=== PATIENT | female | born 1990 | race African-American/Black ===

== ENCOUNTER 2016-08-08 17:42 | Emergency (ER) | payer BC | END 2016-08-08 19:40 | disposition left against medical advice (07) | LOC: UCCORT 17:42 | DX: R21 Rash and other nonspecific skin eruption (principal); Z53.21 Procedure and treatment not carried out due to patient leaving prior to being seen by health care provider ==

== ENCOUNTER 2016-08-15 07:28 | Emergency (ER) | payer BC ==
--- NOTE | 2016-08-15 07:59 | UC ---
Respiratory Complaint HPI - History of Current Complaint Chief Complaint: UCRespiratory Stated Complaint: COUGH Time Seen by Provider: 08/15/16 07:52 Hx Obtained From: Patient Hx Last Menstrual Period: 08/04/16 ?: No Onset/Duration: Sudden Onset, Lasting Weeks - 3, Still Present, Worse Since - last few days Character: Cough: Productive Aggravating Factors: Deep Breaths Associated Signs And Symptoms: Positive: Chills, Pleuritic Chest Pain, Wheezing , Nasal Congestion, Hoarseness, Sinus Discomfort Related History: Seasonal Allergies - Risk Factors Pulmonary Embolism Risk Factors: Smoking Cardiac Risk Factors: Smoking, Family History Pseudomonas Risk Factors: Repeated Antibiotics Past 3 Months Tuberculosis Risk Factors: Smoking - Allergies/Home Medications Allergies/Adverse Reactions: Allergies Allergy/AdvReac Type Severity Reaction Status Date / Time animals Allergy Eyes Uncoded 08/15/16 07:47 Itchy/Swollen/Red/Watery thorazine Allergy See Comment Uncoded 05/27/16 12:08 Home Medications: Home Medications Acetaminophen TAB* [Tylenol TAB*] 2,000 mg PO ONCE PRN 08/15/16 [History Confirmed 08/15/16] PMH/Surg Hx/FS Hx/Imm Hx Endocrine History Of: Denies: Diabetes, Thyroid Disease Cardiovascular History Of: Denies: Cardiac Disorders, Hypertension Respiratory History Of: Reports: Asthma Denies: COPD GI/ History Of: Denies: Ulcer - Surgical History Surgical History: Yes Surgery Procedure, Year, and Place: breast reduction in October-2015 - Family History Known Family History: Positive: Cardiac Disease, Diabetes, Other - asthma - Social History 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 Lives: With Family Alcohol Use: None Substance Use Type: None Substance Use Comment - Amount & Last Used: 4 cups coffee per day Smoking Status (MU): Light Every Day Tobacco Smoker Type: Cigarettes Amount Used/How Often: 5 cig per day Have You Smoked in the Last Year: Yes Cessation Counseling: Patient Advised to Stop Review of Systems Constitutional: Fever, Chills Respiratory: Shortness Of Breath, Cough Musculoskeletal: Myalgia All Other Systems Reviewed And Are Negative: Yes Physical Exam Triage Information Reviewed: Yes Appearance: Ill-Appearing, Pain Distress - with deep breaths and coughing., Obese Vital Signs: Initial Vital Signs Temp 97.2 F 08/15/16 07:35 Pulse 94 02/25/17 07:35 Resp 20 08/15/16 07:35 BP 111/83 08/15/16 07:35 Pulse Ox 100 08/15/16 07:35 Vital Signs Reviewed: Yes Eyes: Positive: Conjunctiva Clear ENT: Positive: Pharynx normal, TMs normal Neck exam: Normal Respiratory: Positive: Wheezing - expiratory with coughing Cardiovascular Exam: Normal Abdomen Description: Negative: Nontender - tender upper abdominal muscles, Peritoneal Signs Musculoskeletal Exam: Normal Neurological Exam: Normal Psychological Exam: Normal Skin Exam: Normal UC Diagnostic Evaluation - Laboratory O2 Sat by Pulse Oximetry: 100 Respiratory Course/Dx - Differential Dx/Diagnosis Differential Diagnosis/HQI/PQRI: Asthma, Influenza, Lower Resp Infection, Sinusitis Provider Diagnoses: Asthma with acute exacerbation. Influenza A Discharge - Discharge Plan Condition: Stable Disposition: HOME Prescriptions: Oseltamivir CAP* [Tamiflu CAP*] 75 mg PO BID #10 cap predniSONE TAB* [Deltasone TAB*] 20 mg PO DAILY #18 tab Patient Education Materials: Influenza (ED), Oseltamivir (By mouth), Asthma (ED ), Prednisone (By mouth), Cigarette Smoking and Your Health (GEN) Additional Instructions: Smoking Cessation Tricks. 1. Cut down by 1 cigarette per day every 2-3 days. Write the number of smokes for that day on the calendar. 2. Identify triggers to smoking: after meals, on the phone, in the car, with coffee, on breaks at work, etc. 3. Formulate a plan with a behavior to replace the smoking. Fireballs in the car , doodle pad on the phone, flavored creamer for the coffee, go for a walk after a meal or on break at work. 4. For stress smokes do deep breathing relaxation. Breath deep in through the nose hold the breath in for a few seconds then breath out slowly through the mouth.
[2016-08-15 08:31] VITALS: BP 114/73
== END 2016-08-15 08:31 | disposition home or self-care (01) ==
LOC: UCCORT 07:28
DX: J09.X2 Influenza due to identified novel influenza A virus with other respiratory manifestations (principal); R07.81 Pleurodynia; J45.901 Unspecified asthma with (acute) exacerbation; F17.210 Nicotine dependence, cigarettes, uncomplicated; Z71.6 Tobacco abuse counseling; Z91.048 Other nonmedicinal substance allergy status; Z91.09 Other allergy status, other than to drugs and biological substances
CPT/HCPCS: 87502; 99212; G0463

== ENCOUNTER 2017-06-06 10:49 | Emergency (ER) | payer BC, OTHER ==
[2017-06-06] MEDS ORDERED: Ketorolac INJ* 60 MG/2 ML VIAL IM ONE (11:31)
--- NOTE | 2017-06-06 11:54 | UC ---
Back Pain HPI - HPI Summary HPI Summary: c/o lower back pain when waking up this am but has been going on for about a week now on and off. took tylenol without relief. 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 denies any radiation down her legs at this time. denies any injury to her back also - History of Current Complaint Chief Complaint: UCBackPain Stated Complaint: BACK PAIN Time Seen by Provider: 06/06/17 11:15 Hx Obtained From: Patient Hx Last Menstrual Period: 05/28/17 ?: No Onset/Duration: Sudden Onset Timing: Constant, Intermittent Severity Initially: Moderate Severity Currently: Moderate Character: Sharp Aggravating Factor(s): Movement, Lifting, Bending, Walking Alleviating Factor(s): Position Associated Signs And Symptoms: Positive: Negative - Allergies/Home Medications Allergies/Adverse Reactions: Allergies Allergy/AdvReac Type Severity Reaction Status Date / Time animals Allergy Eyes Uncoded 06/06/17 11:18 Itchy/Swollen/Red/Watery thorazine Allergy See Comment Uncoded 06/06/17 11:18 PMH/Surg Hx/FS Hx/Imm Hx - Surgical History Surgical History: Yes Surgery Procedure, Year, and Place: breast reduction in October-2015 - Family History Known Family History: Positive: Cardiac Disease, Diabetes, Other - asthma - Social History Alcohol Use: None Substance Use Type: None Substance Use Comment - Amount & Last Used: 4 cups coffee per day Smoking Status (MU): Light Every Day Tobacco Smoker Type: Cigarettes Amount Used/How Often: 5 cig per day Have You Smoked in the Last Year: Yes - Immunization History Most Recent Influenza Vaccination: has not had Review of Systems Constitutional: Negative Skin: Negative Eyes: Negative ENT: Negative Respiratory: Negative Cardiovascular: Negative Gastrointestinal: Negative Genitourinary: Negative Motor: Decreased ROM Neurovascular: Negative Musculoskeletal: Myalgia - lower back Neurological: Negative Psychological: Negative Is Patient Immunocompromised?: No All Other Systems Reviewed And Are Negative: Yes Physical Exam Triage Information Reviewed: Yes Appearance: Well-Appearing Vital Signs: Initial Vital Signs Temp 97.2 F 06/06/17 11:13 Pulse 89 06/06/17 11:13 Resp 18 06/06/17 11:13 BP 106/64 06/06/17 11:13 Pulse Ox 100 06/06/17 11:13 Vital Signs Reviewed: Yes ENT Exam: Normal Neck: Positive: Supple Respiratory: Positive: Chest non-tender, Lungs clear, Normal breath sounds Cardiovascular Exam: Normal Abdominal Exam: Normal Musculoskeletal: Positive: Strength Intact Neurological Exam: Normal Psychological Exam: Normal Skin Exam: Normal Back Pain Course/Dx - Course Course Of Treatment: xray of lumbar spine ordered. toradol im 60mg x 1 now given by nurse. alternate tylenol / ibuprofen every 4-6 hours for pain. f/u pcp in 1 week if symptoms not resolving - Differential Dx/Diagnosis Provider Diagnoses: muscle strain Discharge - Discharge Plan Condition: Good Disposition: HOME Prescriptions: Ibuprofen TAB* [Motrin TAB* 600 MG] 600 mg PO Q6H PRN #40 tab PRN Reason: Pain Patient Education Materials: Muscle Strain (ED) Referrals: JOSE CARLOS Gil [Primary Care Provider] - 1 Week
[2017-06-06 11:57] VITALS: BP 106/64
--- NOTE | 2017-06-06 12:13 | RAD ---
HISTORY: Low back pain, strain COMPARISONS: None VIEWS: 5 , Frontal, lateral, coned-down lateral sacral, and bilateral oblique views of the lumbar spine. FINDINGS: ALIGNMENT: The alignment is normal. VERTEBRAL BODIES: The vertebral body heights are normal. The interpedicular distances are normal. JOINTS: The facet joints are normal. INTERVERTEBRAL DISCS: The intervertebral disc heights are normal. SOFT TISSUE: Unremarkable. OTHER: The pelvis is unremarkable. The lung bases are clear. IMPRESSION: UNREMARKABLE RADIOGRAPHS OF THE LUMBAR SPINE
--- OUTSIDE RECORDS SUMMARY | 2017-06-07 11:51 | XMS REPORT | Clinical Summary ---
:1990 Author Organization [facility] Address [address] [place] [address] Phone Allergies, Adverse Reactions, Alerts Allergy Name Reaction Description Start Date Severity Status Provider THORAZINE Critical Active ANUJA KOGLER PA Conditions or Problems Problem Name Problem Onset Status Entry Provider Comment Standard Annotate Code Date Date Description OBESITY 278.00 Active TAYLOR MADISON Obesity, / [employer] unspecified ASTHMA 493.90 Active TAYLOR MADISON Asthma, / [employer] unspecified BACK PAIN 724.5 Active TAYLOR MADISON Backache, Thoracic / [employer] unspecified INSOMNIA 307.40 Active TAYLOR MADISON 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, unspecified HYPERTROPHY OF 611.1 Active TAYLOR MADISON Hypertrophy of BREAST / [employer] breast VITAMIN D 268.9 Active Kary Unspecified DEFICIENCY / Castro vitamin D deficiency Candidal 112.1 Active ANUJA Candidiasis of vaginitis / KOGLER PA vulva and vagina Hearing loss, 389.9 Active ANUJA Unspecified unspecified / KOGLER PA hearing loss Skin breakdown 709.9 Active ANUJA Unspecified / KOGLER PA disorder of skin and subcutaneous tissue Ear pain 388.70 Active Maribeth 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, / [employer]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 Tinnitus 388.30 Active Maribeth Tinnitus, [employer]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 Hx of elective V45.89 Active ANUJA Other reduction of / KOGLER PA postsurgical breast status Breast 611.71 Active ANUJA Mastodynia tenderness / VERENA AMOR Black stools 578.1 Active ANUJA Blood in stool / VERENA AMOR Epigastric 789.06 Active ANUJA Abdominal pain / VERENA AMOR pain, epigastric Hx of vitamin 268.9 Active SATINDER Unspecified D deficiency / [employer] vitamin D deficiency Prediabetes 790.29 Active SATINDER Other abnormal / [employer] glucose Medication List Medication Instructions Start Stop Generic Name NDC Status Provider Patient Date Date Instruction SYMBICORT 2 inhalation BUDESONIDE-FO 655084679 Active CAITLIN DILL 80-4.5 Twice a Day 07/16 RMOTEROL 20 MD MCG/ACT FUMARATE INHALATION AEROSOL LORATADINE 1 by mouth at LORATADINE 199096010 Active SATINDER 10 MG ORAL bedtime 07/23 10 [employer] TABLET ABILIFY 20 2 by mouth at ARIPIPRAZOLE 193991826 Active SATINDER MG ORAL bedtime 08/31 13 [employer] TABLET VITAMIN D 1 By Mouth ERGOCALCIFERO 157584930 Active SATINDER (ERGOCALCIF Every week 09/01 L 01 [employer]IC ALVINO) [address] UNIT ORAL CAPSULE PROAIR HFA 2 puffs every ALBUTEROL 813792172 Active CAITLIN DILL 108 (90 4 - 6 hours 07/16 SULFATE 22 MD Base) as needed MCG/ACT INHALATION AEROSOL SOLUTION Immunizations Vaccine Administration Date Value Standard Description Tetanus toxoid, reduced given tetanus toxoid, reduced diphtheria toxoid and diphtheria toxoid, and acellular Pertussis vaccine, acellular pertussis vaccine, absorbed (TdaP) given adsorbed Vital Signs Date Name Value Unit Range Description blood pressure, diastolic 73 mm[Hg] BP varela blood pressure, systolic 107 mm[Hg] BP sys height E&M 63 [in_us] Bdy height pulse rate E&M 87 /min Heart rate respiratory rate E&M 18 /min Resp rate temperature E&M 98.0 [degF] Body temperature weight E&M 217 [lb_av] Weight Measured Diagnostic Results Date Name Value Unit Range Description Lab Report: CBS W/AUTOMATED DIFF, COMPREHENSIVE METABOLIC PANEL, SALICYL ... - Chemistry BASOPHILS 0.04 0.0-0.1 blood glucose, random 96 mg/dL 74-106 urea nitrogen, blood 7 mg/dL 7-18 creatinine, serum 0.8 mg/dL 0.6-1.3 Estimated Glomerular Filtration >60 mL/min mL/min/1.73m2 > 60 Rate (calc) Glomerular Filtration rate >60 mL/min >60 Macanese urea nitrogen/creatinine ratio, 8.7 ratio serum sodium, serum 142 mmol/L 757-269 9576/05/08 potassium, serum 3.9 mmol/L 3.5-5.1 chloride, serum 107 mmol/L 98-107 carbon dioxide, venous blood 28 mmol/L 21-32 anion gap, serum 7 mEq/L 8-16 calcium, serum 9.0 mg/dL 8.5-10.1 protein, total, serum 8.1 g/dL 6.4-8.2 albumin, serum 3.9 g/dL 3.4-5.0 globulins, serum, total 4.2 g/dL 1.9-4.3 albumin/globulin ratio, serum 0.9 ratio aspartate aminotransferase (SGOT), 27 U/L 15-37 serum alanine aminotransferase (SGPT), 21 U/L 12-78 serum Absolute Neutrophil count 2.12 K/UL {Cells}/uL 1.8-7.0 Absolute Lymphocytes 1.91 10*3/uL 1.0-4.0 urobilinogen, urine 0.2 E.U./DL {Ehrlich_U}/dL 0.2-1.0 leukocyte (WBC) esterase, urine NEGATIVE NEGATIVE Lab Report: CBS W/AUTOMATED DIFF, COMPREHENSIVE METABOLIC PANEL, SALICYL ... - Hematology Eosinophil Absolute Count 0.21 10*3/uL 0.0-0.5 leukocyte count, blood 4.8 10*3/mm3 3.1-10.7 mean corpuscular hemoglobin concentration, 33.7 G/DL % 30.8- 34.3 RBC platelet count 412 10*3/mm3 635-488 8786/05/08 red blood cell distribution width, size 48.1 fL 3-47 density mean platelet volume 10.1 fL 8.9-12.4 neutrophils as percent of blood leukocytes 44.0 % 40.4-72.8 lymphocytes as percent of blood leukocytes 39.5 % 20.0-42.0 monocytes as percent of blood leukocytes 11.4 % 4.3-13.2 eosinophils as percent of blood leukocytes 4.3 % 0.0-6.6 basophils as percent of blood leukocytes 0.8 % 0.0-1.1 erythrocyte (RBC) count 4.55 M/UL 10*6/mm3 3.90-5.40 hemoglobin, blood 13.6 g/dL 11.6-15.8 hematocrit, blood 40.4 % 36.0-46.1 mean corpuscular volume, RBC 88.8 fL 80.9-99.0 mean corpuscular hemoglobin, RBC 29.9 pg 25.9-32.7 Lab Report: CBS W/AUTOMATED DIFF, COMPREHENSIVE METABOLIC PANEL, SALICYL ... - Toxicology acetaminophen level, serum < 2.0 ug/mL ug/mL 10.0-30.0 Lab Report: CBS W/AUTOMATED DIFF, COMPREHENSIVE METABOLIC PANEL, SALICYL ... - Urinalysis urine color YELLOW YELLOW appearance, urine CLEAR CLEAR glucose, urine, semiquantitative NEGATIVE NEGATIVE bilirubin, urine NEGATIVE NEGATIVE ketones, urine, by test strip 15 NEGATIVE specific gravity, urine >=1.030 1.010-1.030 blood in urine (hemoglobin) by dipstick TRACE NEGATIVE nitrite, urine, semiquantitative NEGATIVE NEGATIVE Lab Report: URINE MICROALBUMIN, CMP, Lipid Panel, VIT D,25-HYD, A1C, AFF ... - Chemistry chloride, serum 104 mmol/L 326-516 1022/03/13 carbon dioxide, venous blood 28 mmol/L 22-32 anion gap, serum 5 mmol/L 2-11 blood glucose, random 86 mg/dL 70-100 urea nitrogen, blood 8 mg/dL 6-24 creatinine, serum 0.90 mg/dL 0.51-0.95 urea nitrogen/creatinine ratio, 8.9 8-20 serum calcium, serum 9.8 mg/dL 8.6-10.3 protein, total, serum 7.6 g/dL 6.4-8.9 albumin, serum 4.4 g/dL 3.2-5.2 globulin, serum 3.2 2-4 albumin/globulin ratio, serum 1.4 1-3 alkaline phosphatase, serum 62 U/L 34-104 alanine aminotransferase (SGPT), 37 U/L 7-52 serum aspartate aminotransferase (SGOT), 31 U/L 13-39 serum Estimated Glomerular Filtration 75.1 (?) mL/min/1.73m2 >60 Rate (calc) triglyceride, serum, fasting 60 mg/dL cholesterol, serum 149 mg/dL HDL cholesterol, serum 46.2 mg/dL LDL cholesterol, serum 91 mg/dL hemoglobin A1C, blood, as % of 5.7 % Less than 6.0 total hemoglobin potassium, serum 4.5 mmol/L 3.5-5.0 sodium, serum 137 mmol/L 878-119 5295/03/13 microalbumin/creatinine ratio, 4.2 ug/mg <31 urine creatinine, random, urine 580.26 mg/dL Lab Report: URINE MICROALBUMIN, CMP, Lipid Panel, VIT D,25-HYD, A1C, AFF ... - Genetics/fertility eGFR if 96.6 (?) mL/min/1.73m2 >60 Lab Report: URINE MICROALBUMIN, CMP, Lipid Panel, VIT D,25-HYD, A1C, AFF ... - Urinalysis microalbumin/total urine volume 24.4 mg/L Office Visit: DIANNE/GITA Age:25: labs and shot - Urinalysis urine color yellow appearance, urine clear leukocyte esterase, urine, by dipstick negative nitrite, urine, semiquantitative negative urobilinogen, urine, semiquantitative (dipstick) negative blood in urine (hemoglobin) by dipstick negative ketones, urine, by test strip negative bilirubin, urine negative glucose, urine, semiquantitative negative pH, urine, semiquantitative 5.0 specific gravity, urine 1.030 Encounters Code Encounter Date Provider Facility CPT-91947 Ofc Vst, Est Level III [facility] 10:09:44 EDT CPT-44043 Ofc Vst, Est Level III ANUJA AMOR [facility] 10:05:32 EDT CPT-36264 Ofc Vst, Est Level III [facility] 09:36:03 EST CPT-11496 Ofc Vst, Est Level III ANUJA AMOR [facility] 09:12:18 EST CPT-60205 [facility] CPT-10277 Ofc Vst, New Level II TAYLOR ELI [facility] 14:44:11 EDT Procedures Code Procedure Name Date Entry Date Standard Description CPT-24534 Est - PE 18-39 Y 13:10:17 EDT CPT-46931 Admin one Imm 12:07:44 EDT CPT-58141 TDAP (Boostrix) 12:07:42 EDT CPT-58640 Est - PE 18-39 Y 11:23:17 EDT CPT-60703 TDAP (Boostrix) 11:39:58 EDT CPT-74173 Est - PE 18-39 Y 13:18:21 EST CPT-30000 Venipuncture 13:18:20 EST CPT-65722R Audiometric Screen 10:02:14 EST CPT-60160 Urine Dip - In House 10:02:12 EST CPT-60106 PAP (Procedure Only) 09:29:54 EST CPT-60123 Est - PE 18-39 Y 09:29:54 EST CPT-47982 Urine Dip - In House 09:29:54 EST
--- OUTSIDE RECORDS SUMMARY | 2017-06-07 11:52 | XMS REPORT ---
:1990 External Reference #:[id number] Author Organization [facility] Address [address] [address] Phone [phone] Care Team Providers Name Role Phone Susan Brenner MD Primary Care Physician Unavailable Payers Type Date Identification Numbers Payment Provider Subscriber Commercial Policy Number: [id number] Jose Guadalupe Davis Group Number: [id number] [address] PayID: [id number] [place] [address] Medig[employer] Part B Expires: 2015 [facility]ID: [id number] [facility] [address] [address] [place] [address] Supplemental Policy Effective: Policy Number: Cont: [facility] [employer] 2015 [id number] [facility] Group Number: [id number] [id number] [facility] PayID: [id number] [place] [address] Problems Date Description Provider Status Onset: 05/12/2017 Acquired brandonux yolanda Vargas MD Active Family History Date Family Member(s) Problem(s) Comments Father Asthma Mother Asthma Mother maternal grandmother-asthma Social History Type Date Description Comments Marital Status Single Lives With Family 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 Cigarette Use currently smokes 1/2 Pack Daily ETOH Use Currently consumes alcohol 3-4 times per week Smoking Light tobacco smoker (10 or fewer cigarettes/day) Recreational Drug Use Former Drug User Daily Caffeine Consumes on average 1 cup of regular coffee per day Daily Caffeine Consumes on average 2 sodas per day Daily Caffeine Consumes on average 32oz of energy drinks per day Exercise Type/Frequency Does not exercise Allergies, Adverse Reactions, Alerts Date Description Reaction Status Severity Comments 05/06/2017 NKDA active 05/12/2017 Dogs active 05/12/2017 Dust active Medications Medication Date Status Form Strength Qnty SIG Indications Ordering Provider Loratadine 00/00/00 Active Tablets 10mg 1 by mouth Unknown 00 every day as needed Symbicort Active Aerosol 80-4.5mcg/Ac 2 puff Unknown 00 t twice a day Proair HFA Active Aerosol 108(90Base) 2 puffs by Unknown 00 mcg/Act mouth every 4 hours as needed Medications Administered in Office Medication Date Status Form Strength Qnty SIG Indications Ordering Provider PPD Administered Injection Nurse Visit 6 C Vital Signs Date Vital Result Comment 05/12/2017 Height 63.50 inches 5'3.50" Weight 238.00 lb Heart Rate 87 /min BP Systolic Sitting 104 mmHg BP Diastolic Sitting 76 mmHg Respiratory Rate 20 /min Pain Level 0 O2 % BldC Oximetry 98 % BMI (Body Mass Index) 41.5 kg/m2 Results Description No Information Procedures Description No Information Plan of Care 05/12/2017 - Joey Vargas, MDM20.11 Hallux valgus (acquired), right footFollow up:Follow Up: As needed please print off patient education form
== END 2017-06-06 12:42 | disposition home or self-care (01) ==
LOC: UCCORT 10:49
DX: S39.012A Strain of muscle, fascia and tendon of lower back, initial encounter (principal); X50.9XXA Other and unspecified overexertion or strenuous movements or postures, initial encounter; Y93.F2 Activity, caregiving, lifting; Y92.9 Unspecified place or not applicable; Y99.0 Civilian activity done for income or pay; F17.210 Nicotine dependence, cigarettes, uncomplicated
CPT/HCPCS: 72110; 96372; 99212; G0463; J1885

== ENCOUNTER 2018-03-28 17:53 | Inpatient (IN) | payer OTHER ==
[2018-03-28] MEDS ORDERED: Clindamycin 600 MG IVPREMIX(* 600 MG/50 ML SDV IV ONE (18:21)
[2018-03-28] MEDS ORDERED: NS 0.9% 1000 ML* 1,000 ML IV ONE ×2 (18:22→19:38)
[2018-03-28] MEDS ORDERED: Ketorolac INJ* 30 MG/ML 1 ML VIAL IV PUSH ONE (18:22)
[2018-03-28 18:58] LABS: ABS Basophils 0.1 10^3/ul (0-0.2); ABS Eosinophils 0.1 10^3/ul (0-0.6); ABS Lymphocytes 1.6 10^3/ul (1.0-4.8); ABS Monocytes 0.7 10^3/ul (0-0.8); ABS Neutrophils 8.2 10^3/ul (1.5-7.7); ABS Nucleated RBC 0 10^3/ul; Hematocrit 37 % (35-47); Hemoglobin 12.6 g/dl (12.0-16.0); Lymphocyte % 14.8 % (25-47); Mean Corpuscular HGB Conc 34 g/dl (31-36); Mean Corpuscular Hemoglobin 30 pg (27-31); Mean Corpuscular Volume 87 fL (80-97); Mean Platelet Volume 7.9 um3 (7.4-10.4); Nucleated Red Blood Cells % 0; Platelet Count 421 10^3/ul (150-450); Red Blood Count 4.26 10^6/ul (4.00-5.40); Red Cell Distribution Width 14 % (10.5-15); White Blood Count 10.8 10^3/ul (3.5-10.8)
[2018-03-28 19:04] LABS: INR 1.04 (0.77-1.02)
[2018-03-28 19:15] LABS: EGFR Non-African American 60.6 (>60)
--- NOTE | 2018-03-28 19:38 | ED ---
Skin Complaint - HPI Summary HPI Summary: 27 year old female presents with rash for the past couple days. she's got bit by a bug on . She then developed a pimple type lesion on her right cheek on Wednesday that she tried to pop it and got no drainage. States she went to [facility] yesterday and she would not let them drain it but they did open it up with a needle and nothing came out. She states that they placed on Bactrim. She took 2 doses of Bactrim. States the swelling continues to increase. She denies any fevers but admits to chills. States she went to [facility] today and they gave her a dose of Zosyn and they wants to admit her. She states she had allergic reactions associated with the Zosyn as she became itchy so they gave her some benadryl. She states that it took to long so she signed out AMA. She states that since being seen there this morning the swelling in her face is increased. She denies any pain with eye movement. She states that she is now not able to completely open her eyes any more. She had a CT doen at [facility] which showed no abscess. She is not diabetic. She denies any history of MRSA. - History of Current Complaint Chief Complaint: EDRashSkinAbscess Time Seen by Provider: 03/28/18 18:13 Stated Complaint: RT SIDE FACIAL SWELLING Hx Last Menstrual Period: 08/04/16 Pain Intensity: 10 - Allergy/Home Medications Allergies/Adverse Reactions: Allergies Allergy/AdvReac Type Severity Reaction Status Date / Time piperacillin [From Zosyn] Allergy Itching Verified 03/28/18 18:05 tazobactam [From Zosyn] Allergy Itching Verified 03/28/18 18:05 animals Allergy Eyes Uncoded 06/06/17 11:18 Itchy/Swollen/Red/Watery thorazine Allergy See Comment Uncoded 06/06/17 11:18 PMH/Surg Hx/FS Hx/Imm Hx Endocrine/Hematology History: Denies: Hx Diabetes, Hx Thyroid Disease Cardiovascular History: Denies: Hx Hypertension Respiratory History: Reports: Hx Asthma Denies: Hx Chronic Obstructive Pulmonary Disease (COPD) GI History: Denies: Hx Ulcer - Surgical History Surgery Procedure, Year, and Place: breast reduction in October-2015 Infectious Disease History: No Infectious Disease History: Denies: Hx Clostridium Difficile, Hx Hepatitis, Hx Human Immunodeficiency Virus (HIV), Hx of Known/Suspected MRSA, Hx Shingles, Hx Tuberculosis, Hx Known/ Suspected VRE, Hx Known/Suspected VRSA, History Other Infectious Disease, Traveled Outside the [place] in Last 30 Days - Family History Known Family History: Positive: Cardiac Disease, Diabetes, Other - asthma - Social History Alcohol Use: Daily Alcohol Amount: 1 beer a night Substance Use Type: Reports: Marijuana, Other Substance Use Comment - Amount & Last Used: 4 cups coffee per day Smoking Status (MU): Light Every Day Tobacco Smoker Type: Cigarettes Amount Used/How Often: 5 cig per day Have You Smoked in the Last Year: Yes Review of Systems Negative: Fever Negative: Chest Pain Negative: Shortness Of Breath Positive: Rash All Other Systems Reviewed And Are Negative: Yes Physical Exam Triage Information Reviewed: Yes Vital Signs On Initial Exam: Initial Vitals Temp Pulse Resp BP Pulse Ox 97.1 F 74 16 127/98 100 03/28/18 17:57 03/28/18 17:57 03/28/18 17:57 03/28/18 17:57 03/28/18 17:57 Vital Signs Reviewed: Yes Appearance: Positive: Well-Appearing Skin: Positive: Warm, Dry, Other - edema below right eye with erythema, induration felt in center of right cheek Head/Face: Positive: Normal Head/Face Inspection Eyes: Positive: Normal, Conjunctiva Clear ENT: Positive: Pharynx normal Respiratory/Lung Sounds: Positive: Clear to Auscultation, Breath Sounds Present Cardiovascular: Positive: Normal, RRR Musculoskeletal: Positive: Normal Neurological: Positive: Normal Psychiatric: Positive: Normal Diagnostics - Vital Signs Vital Signs Temp Pulse Resp BP Pulse Ox 03/28/18 19:00 87 100 03/28/18 18:57 78 92/66 99 03/28/18 18:28 77 99/52 99 03/28/18 18:27 80 97 03/28/18 17:57 97.1 F 74 16 127/98 100 - Laboratory Lab Results: Lab Results 03/28/18 03/28/18 03/28/18 Range/Units 18:48 18:48 18:48 WBC 10.8 (3.5-10.8) 10^3/ul RBC 4.26 (4.00-5.40) 10^6/ul Hgb 12.6 (12.0-16.0) g/dl Hct 37 (35-47) % MCV 87 (80-97) fL MCH 30 (27-31) pg MCHC 34 (31-36) g/dl RDW 14 (10.5-15) % Plt Count 421 (150-450) 10^3/ul MPV 7.9 (7.4-10.4) um3 Neut % (Auto) 76.1 (38-83) % Lymph % (Auto) 14.8 L (25-47) % [place] % (Auto) 6.9 (0-7) % Eos % (Auto) 1.0 (0-6) % Baso % (Auto) 1.2 (0-2) % Absolute Neuts (auto) 8.2 H (1.5-7.7) 10^3/ul Absolute Lymphs (auto) 1.6 (1.0-4.8) 10^3/ul Absolute Monos (auto) 0.7 (0-0.8) 10^3/ul Absolute Eos (auto) 0.1 (0-0.6) 10^3/ul Absolute Basos (auto) 0.1 (0-0.2) 10^3/ul Absolute Nucleated RBC 0 10^3/ul Nucleated RBC % 0 INR (Anticoag Therapy) 1.04 H (0.77-1.02) Sodium 136 (135-145) mmol/L Potassium 3.6 (3.5-5.0) mmol/L Chloride 104 (101-111) mmol/L Carbon Dioxide 28 (22-32) mmol/L Anion Gap 4 (2-11) mmol/L BUN 11 (6-24) mg/dL Creatinine 1.07 H (0.51-0.95) mg/dL Est GFR ( Amer) 73.4 (>60) Est GFR (Non-Af Amer) 60.6 (>60) BUN/Creatinine Ratio 10.3 (8-20) Glucose 102 H (70-100) mg/dL Lactic Acid (0.5-2.0) mmol/L Calcium 9.4 (8.6-10.3) mg/dL Total Bilirubin 0.40 (0.2-1.0) mg/dL AST 16 (13-39) U/L ALT 14 (7-52) U/L Alkaline Phosphatase 62 (34-104) U/L Total Protein 7.6 (6.4-8.9) g/dL Albumin 4.3 (3.2-5.2) g/dL Globulin 3.3 (2-4) g/dL Albumin/Globulin Ratio 1.3 (1-3) 03/28/18 Range/Units 18:48 WBC (3.5-10.8) 10^3/ul RBC (4.00-5.40) 10^6/ul Hgb (12.0-16.0) g/dl Hct (35-47) % MCV (80-97) fL MCH (27-31) pg MCHC (31-36) g/dl RDW (10.5-15) % Plt Count (150-450) 10^3/ul MPV (7.4-10.4) um3 Neut % (Auto) (38-83) % Lymph % (Auto) (25-47) % [place] % (Auto) (0-7) % Eos % (Auto) (0-6) % Baso % (Auto) (0-2) % Absolute Neuts (auto) (1.5-7.7) 10^3/ul Absolute Lymphs (auto) (1.0-4.8) 10^3/ul Absolute Monos (auto) (0-0.8) 10^3/ul Absolute Eos (auto) (0-0.6) 10^3/ul Absolute Basos (auto) (0-0.2) 10^3/ul Absolute Nucleated RBC 10^3/ul Nucleated RBC % INR (Anticoag Therapy) (0.77-1.02) Sodium (135-145) mmol/L Potassium (3.5-5.0) mmol/L Chloride (101-111) mmol/L Carbon Dioxide (22-32) mmol/L Anion Gap (2-11) mmol/L BUN (6-24) mg/dL Creatinine (0.51-0.95) mg/dL Est GFR ( Amer) (>60) Est GFR (Non-Af Amer) (>60) BUN/Creatinine Ratio (8-20) Glucose (70-100) mg/dL Lactic Acid 1.1 (0.5-2.0) mmol/L Calcium (8.6-10.3) mg/dL Total Bilirubin (0.2-1.0) mg/dL AST (13-39) U/L ALT (7-52) U/L Alkaline Phosphatase (34-104) U/L Total Protein (6.4-8.9) g/dL Albumin (3.2-5.2) g/dL Globulin (2-4) g/dL Albumin/Globulin Ratio (1-3) Result Diagrams: 03/28/18 18:48 03/28/18 18:48 Lab Statement: Any lab studies that have been ordered have been reviewed, and results considered in the medical decision making process. Re-Evaluation - Re-Evaluation First Eval Re-Evaluation Time: 20:25 Comment: admits to itchying again. pain increased again Course/Dx - Course Course Of Treatment: 27 year old female presents with rash for the past couple days. she's got bit by a bug on . She then developed a pimple type lesion on her right cheek on Wednesday that she tried to pop it and got no drainage. States she went to [facility] yesterday and she would not let them drain it but they did open it up with a needle and nothing came out. She states that they placed on Bactrim. She took 2 doses of Bactrim. States the swelling continues to increase. She denies any fevers but admits to chills. States she went to [facility] today and they gave her a dose of Zosyn and they wants to admit her. She states she had allergic reactions associated with the Zosyn as she became itchy so they gave her some benadryl. She states that it took to long so she signed out AMA. She states that since being seen there this morning the swelling in her face is increased. She denies any pain with eye movement. She states that she is now not able to completely open her eyes any more. She had a CT doen at [facility] which showed no abscess. She is not diabetic. She denies any history of MRSA. on exam has edema and erythema of right cheek and right perioribral region. area of induraction felt right cheek. CT [facility] report read as no abscess just soft tissue swelling. gave dose of clindamycin. discussed case with dr tamez who agrees to admit and recommends vancomycin be added. - Differential Diagnoses - Skin Complaint Differential Diagnoses: Abscess, Cellulitis, Contact Dermatitis - Diagnoses Provider Diagnoses: Periorbital cellulitis Discharge - Sign-Out/Discharge Documenting (check all that apply): Patient Departure - Discharge Plan Condition: Stable Disposition: ADMITTED TO [facility] Referrals: No Primary Care Phys,NOPCP [Primary Care Provider] - - Billing Disposition and Condition Condition: STABLE Disposition: Admitted to [facility]
[2018-03-28] MEDS ORDERED: diPHENhydraMINE PO* 25 MG PO ONE (20:19)
[2018-03-28] MEDS ORDERED: Morphine INJ* 4 MG/ML 1 ML SYRINGE (NEW SYRINGE VERSION) IV ONE (20:19)
[2018-03-28] MEDS ORDERED: Vancomycin 1500 MG IV - x ONCE IVPB ONE ×2 (22:00)
[2018-03-28] MEDS ORDERED: Vancomycin(*) 1,000 MG VIAL IVPB SCH (22:00)
[2018-03-28] MEDS ORDERED: Acetaminophen TAB* 325 MG PO PRN (22:16)
[2018-03-28] MEDS ORDERED: Morphine INJ* 4 MG/ML 1 ML SYRINGE (NEW SYRINGE VERSION) IV PRN (22:16)
[2018-03-28] MEDS ORDERED: Al Hydrox/Mg Hydrox/Simet LIQ* 30 ML UDC PO PRN (22:16)
[2018-03-28] MEDS ORDERED: Albuterol HFA INHALER* 8 gm MDI INH PRN (22:32)
[2018-03-28] MEDS ORDERED: Vancomycin per Pharmacy* NOTE FOLLOW UP SCH (23:00)
--- NOTE | 2018-03-29 00:18 | HP ---
CC: [facility] in [place]; Dr. Meade.* HISTORY AND PHYSICAL: DATE OF ADMISSION: 03/28/18 PRIMARY CARE PROVIDER: [facility] in [place]. ATTENDING PHYSICIAN: Dr. Monsivais * (dictated by Simran Marie NP) CHIEF COMPLAINT: Right periorbital cellulitis. HISTORY OF PRESENT ILLNESS: Ms. Davis is a 27-year-old female patient who reports she was bit by a bug on on her right cheek. She then developed a pimple type lesion on her right cheek which she manipulated on Wednesday but, there was no drainage. She went to [facility] Wednesday and provider attempted to drain pimple again, but there was no drainage. She states she was then placed on Bactrim and discharged home. She took 2 doses of Bactrim at home. Reports swelling continued, therefore, she presented to [place] ER again today. While at [place], they gave a dose of Zosyn, obtained a CT, and they had planned to admit her. She states she had allergic reaction to Zosyn as she became itchy so they gave her Benadryl. She states that it too long for them to admit her in [place] therefore she left AMA. She states since being seen this morning in [place], the swelling in her face has increased. She denies fevers, but reports chills. She denies pain with eye movement. Denies visual changes. Denies headache, dizziness. Denies neck pain. She had a CT at [place] which showed no abscess. She presented to the ED this afternoon and we were asked to consult for admission. While in the ED, her vital signs had remained stable. She has received Clindamycin, vancomycin, and normal saline in addition to pain medication which included morphine and Toradol. She also received Benadryl 25 mg p.o. The patient was also pancultured and labs were obtained. PAST MEDICAL HISTORY: 1. Asthma. The patient has never been admitted to the hospital for asthma exacerbation. 2. Borderline diabetes. PAST SURGICAL HISTORY: Breast reduction in October 2015. MEDICATIONS: Home Medications: 1. Ventolin 2 inhalations q.4 to 6 hours p.r.n. shortness of breath. 2. Symbicort 1 inhalation b.i.d. 3. Loratadine daily. ALLERGIES: ZOSYN causes itching. THORAZINE causes seizures. SOCIAL HISTORY: The patient smokes half a pack a day for approximately the last 5 years years. EtOH use approximately 1 beer nightly. Drug use; the patient reports daily marijuana. The patient lives with her fiance and works at [employer]. The patient has been independent with ADLs and does not need any assistive devices. The patient's surrogate decision maker is her fiance, Pearl Hahn, phone number is [phone]. REVIEW OF SYSTEMS: A 14-point review of systems was performed. All pertinent positive and negative findings are in the HPI. All other systems are negative. PHYSICAL EXAMINATION GENERAL: Ms. Davis is a well-developed, well-nourished slightly obese young -Italian woman sitting in bed, in no acute distress. VITAL SIGNS: BP 115/61, O2 saturations 100% on room air, pulse 87, temp 97.1. HEENT: Pupils are equal, round, and reactive to light. Extraocular movements are intact. Sclerae normal. The patient has periorbital cellulitis on the right extending from the lower eyelid to mid cheek. Oral mucosa is moist without lesion. NECK: Full range of motion. No lymphadenopathy or tenderness. RESPIRATORY: Lungs are clear to auscultation. No rhonchi, wheezes, or rales. CARDIOVASCULAR: Regular, rate, and rhythm. S1 and S2 present. No murmurs, rubs, or gallops. ABDOMEN: Soft and nontender to palpation. Bowel sounds are normoactive throughout. No bruises appreciated. EXTREMITIES: Skin warm. No edema. No clubbing or cyanosis. Pedal pulses positive bilaterally. MUSCULOSKELETAL: Full range of motion. NEUROLOGIC: Awake, alert, and oriented x4. Moves all extremities. SKIN: Grossly intact without lesions. DIAGNOSTIC STUDIES/LABORATORY DATA: WBC is 10.8, RBC is 4.26, hemoglobin is 12.6, hematocrit 37, platelets 421, INR 1.04. Sodium is 136, potassium is 3.6, chloride is 104, BUN 11, creatinine of 1.07, glucose 102, lactic 1.1, AST 16, ALT 14, alk phos 62, C-reactive protein is 26.50. ASSESSMENT AND PLAN: Ms. Davis is a 27-year-old female with the past medical history of asthma, smoking and borderline diabetes who presented to the ED today with complaint of right periorbital cellulitis. The patient will be admitted for OBV. 1. Right periorbital cellulitis. We will continue clindamycin and vanco as given in the ED. MRSA swab sent from [facility]. Labs ordered for tomorrow morning. ID consult requested. 2. Asthma. Assessment: The patient is having no issues with breathing. We will order inhalers as she takes at home. 3. Smoking. Offered nicotine patch or inhalers. The patient declined. Discussed the importance of quitting. 4. Code status. The patient is a full code. 6. DVT prophylaxis. Based on DVT risk assessment, the patient is low risk. Therefore I will order regular ambulation. TIME SPENT: Approximately 60 minutes were spent on this admission, greater than half the time was spent with the patient's caregiver obtaining my history, performing the physical exam, and reviewing plan of care. This case has been reviewed with my attending, Dr. Monsivais, who was in agreement with my plan of care. SIMRAN MARIE, BLAKE [id number]/CPS #: [id number] JACQUELINE
[2018-03-29] MEDS: Ibuprofen TAB* 600 MG PO PRN ×3 (00:21→17:00)
[2018-03-29] MEDS: oxyCODONE/Acetamin 5/325 MG* TAB PO PRN ×5 (00:22→22:23)
[2018-03-29 00:59] LABS: Urine Appearance Cloudy; Urine Blood Negative (Negative); Urine Color Yellow; Urine Ketones Negative (Negative); Urine Protein 1+(30 mg/dL) (Negative); Urine Red Blood Cell Trace(0-2/hpf) (Absent); Urine Specific Gravity 1.027 (1.010-1.030); Urine Urobilinogen Negative (Negative); Urine White Blood Cell Trace(0-5/hpf) (Absent)
[2018-03-29] MEDS: Clindamycin 600 MG IVPREMIX(* 600 MG/50 ML SDV IV SCH ×4 (04:04→22:22)
[2018-03-29 05:48] LABS: ABS Basophils 0.1 10^3/ul (0-0.2); ABS Eosinophils 0.3 10^3/ul (0-0.6); ABS Lymphocytes 2.4 10^3/ul (1.0-4.8); ABS Neutrophils 5.6 10^3/ul (1.5-7.7); ABS Nucleated RBC 0 10^3/ul; Eosinophil % 2.8 % (0-6); Hematocrit 35 % (35-47); Hemoglobin 11.9 g/dl (12.0-16.0); Lymphocyte % 25.8 % (25-47); Mean Corpuscular HGB Conc 34 g/dl (31-36); Mean Corpuscular Hemoglobin 30 pg (27-31); Mean Corpuscular Volume 88 fL (80-97); Mean Platelet Volume 8.6 um3 (7.4-10.4); Nucleated Red Blood Cells % 0.1; Platelet Count 356 10^3/ul (150-450); Red Blood Count 4.03 10^6/ul (4.00-5.40); Red Cell Distribution Width 14 % (10.5-15); White Blood Count 9.3 10^3/ul (3.5-10.8)
[2018-03-29] MEDS: Vancomycin(*) 1,250 MG in NS 0.9% 250 ML* 250 ML IVPB SCH ×3 (06:01→23:12)
[2018-03-29 06:17] LABS: EGFR Non-African American 88.6 (>60)
[2018-03-29] MEDS: Albuterol 2.5 MG/3 ML NEB.SOL* (0.083%) INH PRN (07:28)
[2018-03-29] MEDS: Mometasone/Formoter 100/5 MDI INH SCH ×2 (07:33→20:21)
[2018-03-29] MEDS: Cetirizine* 10 MG TAB PO SCH (09:19)
--- NOTE | 2018-03-29 09:54 | PN ---
Subjective Date of Service: 03/29/18 Interval History: Patient seen and examined. States she is in a lot of pain, states she feels her vision in the right eye is blurry and facial edema is raising her lower lid, obstructing her vision. Had the "sweats" yesterday, but denies fever or chills at present, no n/v. Does have right upper tooth pain and right frontal headache. Objective Active Medications: Acetaminophen (Tylenol Tab*) 650 mg PO Q4H PRN PRN Reason: FEVER/PAIN Last Admin: 03/29/18 09:19 Dose: 650 mg Al Hydrox/Mg Hydrox/Simethicone (Maalox Plus*) 30 ml PO Q6H PRN PRN Reason: INDIGESTION Albuterol (Ventolin 2.5 Mg/3 Ml Neb.Lily*) 2.5 mg INH [id number] AWAKE PRN PRN Reason: sob/wheezing Last Admin: 03/29/18 07:28 Dose: 2.5 mg Albuterol (Ventolin Hfa Inhaler*) 2 puff INH Q4H PRN PRN Reason: WHEEZING Cetirizine HCl (Zyrtec*) 10 mg PO DAILY [facility] Last Admin: 03/29/18 09:19 Dose: 10 mg Clindamycin HCl/Dextrose (Cleocin 600 Mg Ivpremix(*) Sdv) 600 mg in 50 mls @ 100 mls/hr IV Q8H [facility] Last Admin: 03/29/18 04:04 Dose: 100 mls/hr Vancomycin HCl 1,250 mg/ (Sodium Chloride) 250 mls @ 166.667 mls/hr IVPB Q8H [facility] Last Admin: 03/29/18 06:01 Dose: 166.667 mls/hr Ibuprofen (Motrin Tab*) 600 mg PO Q6H PRN PRN Reason: PAIN Last Admin: 03/29/18 06:42 Dose: 600 mg Mometasone Furoate/Formoterol Fumar (Dulera 100/5 Mdi*) 2 puff INH BID [facility] Last Admin: 03/29/18 07:33 Dose: 2 puff Morphine Sulfate (Morphine Inj (Syringe)*) 2 mg IV Q4H PRN PRN Reason: PAIN - MILD Ondansetron HCl (Zofran Inj*) 4 mg IV Q4H PRN PRN Reason: NAUSEA/VOMITING Oxycodone/Acetaminophen (Percocet 5/325 Tab*) 1 tab PO Q4H PRN PRN Reason: Pain Last Admin: 03/29/18 06:41 Dose: 1 tab Pharmacy Consult (Vancomycin Per Pharmacy*) 1 note FOLLOW UP .VANC PER PHARMACY [facility] Pharmacy Profile Note (Vancomycin Trough Check) 1 note FOLLOW UP 0530 ONE Stop: 03/30/18 05:31 Vital Signs - 8 hr 03/29/18 03/29/18 03/29/18 03:47 03:48 06:41 Temperature 97.9 F Pulse Rate 61 Respiratory 18 16 17 Rate Blood Pressure 101/58 (mmHg) O2 Sat by Pulse 98 Oximetry 03/29/18 07:30 Temperature Pulse Rate 66 Respiratory Rate Blood Pressure (mmHg) O2 Sat by Pulse 100 Oximetry Oxygen Devices in Use Now: None Appearance: Alert, well appearing, NAD Eyes: No Scleral Icterus, - - significant periorbital edema on the right Ears/Nose/Mouth/Throat: NL Teeth, Lips, Gums, Mucous Membranes Moist Neck: NL Appearance and Movements; NL JVP, Trachea Midline Respiratory: Symmetrical Chest Expansion and Respiratory Effort, Clear to Auscultation Cardiovascular: NL Sounds; No Murmurs; No JVD, RRR Abdominal: NL Sounds; No Tenderness; No Distention Extremities: No Edema, No Clubbing, Cyanosis Skin: - - right cheek dry scabbed wound, approx 1/2cm in diameter with white crusting at the border, no exudate noted, hard, erythematous, tender, no fluctuance Neurological: Alert and Oriented x 3, NL Sensation Nutrition: Taking PO's Result Diagrams: 03/29/18 04:59 03/29/18 04:59 Additional Lab and Data: Lab Results 03/28/18 03/28/18 03/28/18 Range/Units 18:48 18:48 18:48 WBC 10.8 (3.5-10.8) 10^3/ul RBC 4.26 (4.00-5.40) 10^6/ul Hgb 12.6 (12.0-16.0) g/dl Hct 37 (35-47) % MCV 87 (80-97) fL MCH 30 (27-31) pg MCHC 34 (31-36) g/dl RDW 14 (10.5-15) % Plt Count 421 (150-450) 10^3/ul MPV 7.9 (7.4-10.4) um3 Neut % (Auto) 76.1 (38-83) % Lymph % (Auto) 14.8 L (25-47) % [place] % (Auto) 6.9 (0-7) % Eos % (Auto) 1.0 (0-6) % Baso % (Auto) 1.2 (0-2) % Absolute Neuts (auto) 8.2 H (1.5-7.7) 10^3/ul Absolute Lymphs (auto) 1.6 (1.0-4.8) 10^3/ul Absolute Monos (auto) 0.7 (0-0.8) 10^3/ul Absolute Eos (auto) 0.1 (0-0.6) 10^3/ul Absolute Basos (auto) 0.1 (0-0.2) 10^3/ul Absolute Nucleated RBC 0 10^3/ul Nucleated RBC % 0 INR (Anticoag Therapy) 1.04 H (0.77-1.02) Sodium 136 (135-145) mmol/L Potassium 3.6 (3.5-5.0) mmol/L Chloride 104 (101-111) mmol/L Carbon Dioxide 28 (22-32) mmol/L Anion Gap 4 (2-11) mmol/L BUN 11 (6-24) mg/dL Creatinine 1.07 H (0.51-0.95) mg/dL Est GFR ( Amer) 73.4 (>60) Est GFR (Non-Af Amer) 60.6 (>60) BUN/Creatinine Ratio 10.3 (8-20) Glucose 102 H (70-100) mg/dL Lactic Acid (0.5-2.0) mmol/L Calcium 9.4 (8.6-10.3) mg/dL Total Bilirubin 0.40 (0.2-1.0) mg/dL AST 16 (13-39) U/L ALT 14 (7-52) U/L Alkaline Phosphatase 62 (34-104) U/L Total Protein 7.6 (6.4-8.9) g/dL Albumin 4.3 (3.2-5.2) g/dL Globulin 3.3 (2-4) g/dL Albumin/Globulin Ratio 1.3 (1-3) 03/28/18 Range/Units 18:48 WBC (3.5-10.8) 10^3/ul RBC (4.00-5.40) 10^6/ul Hgb (12.0-16.0) g/dl Hct (35-47) % MCV (80-97) fL MCH (27-31) pg MCHC (31-36) g/dl RDW (10.5-15) % Plt Count (150-450) 10^3/ul MPV (7.4-10.4) um3 Neut % (Auto) (38-83) % Lymph % (Auto) (25-47) % [place] % (Auto) (0-7) % Eos % (Auto) (0-6) % Baso % (Auto) (0-2) % Absolute Neuts (auto) (1.5-7.7) 10^3/ul Absolute Lymphs (auto) (1.0-4.8) 10^3/ul Absolute Monos (auto) (0-0.8) 10^3/ul Absolute Eos (auto) (0-0.6) 10^3/ul Absolute Basos (auto) (0-0.2) 10^3/ul Absolute Nucleated RBC 10^3/ul Nucleated RBC % INR (Anticoag Therapy) (0.77-1.02) Sodium (135-145) mmol/L Potassium (3.5-5.0) mmol/L Chloride (101-111) mmol/L Carbon Dioxide (22-32) mmol/L Anion Gap (2-11) mmol/L BUN (6-24) mg/dL Creatinine (0.51-0.95) mg/dL Est GFR ( Amer) (>60) Est GFR (Non-Af Amer) (>60) BUN/Creatinine Ratio (8-20) Glucose (70-100) mg/dL Lactic Acid 1.1 (0.5-2.0) mmol/L Calcium (8.6-10.3) mg/dL Total Bilirubin (0.2-1.0) mg/dL AST (13-39) U/L ALT (7-52) U/L Alkaline Phosphatase (34-104) U/L Total Protein (6.4-8.9) g/dL Albumin (3.2-5.2) g/dL Globulin (2-4) g/dL Albumin/Globulin Ratio (1-3) Microbiology and Other Data: Microbiology 03/28/18 21:00 Nasal Screen MRSA (PCR) - Final Nasal Mrsa Detected Assess/Plan/Problems-Billing Assessment: This is a 27 year old female that failed outpatient treatment of a right cheek wound (possible insect bite) and reaction to Zosyn, that now presents with increasing periorbital cellulitis. - Patient Problems (1) Periorbital cellulitis of right eye Code(s): L03.213 - PERIORBITAL CELLULITIS SNOMED Code(s): 928016818 Comment: - Failed Bactrim, did have positive MRSA swab of the [facility] - Rash and SOB after having Zosyn in ED at [place] - Continue vanco and clindamycin, follow troughs - ID Consulted - Concern for increasing symptoms, now with visual disturbance, jaw and eye pain - Monitor WBCs and temps - Maxillofacial CT ordered to evaluate for abscess and surrounding structures - If abscess is noted, will consult plastic surgery, as patient prone to keloid formation - Pain control (2) Diabetes Code(s): E11.9 - TYPE 2 DIABETES MELLITUS WITHOUT COMPLICATIONS SNOMED Code(s) : 42275237 Comment: - "borderline" per patient - Will obtain A1c (3) Asthma Code(s): J45.909 - UNSPECIFIED ASTHMA, UNCOMPLICATED SNOMED Code(s): 074491508 Comment: - Not in exacerbation - Albuterol PRN (4) DVT prophylaxis Code(s): BQV5430 - SNOMED Code(s): 986533163 Comment: - Low risk, ambulate ad betsy Status and Disposition: Inpatient.
--- NOTE | 2018-03-29 10:48 | RAD ---
HISTORY: periorbital cellulitis r/o abscess right cheek COMPARISONS: None TECHNIQUE: Multiple contiguous axial CT scans were obtained of the face without intravenous contrast, with coronal and sagittal multiplanar reformations. FINDINGS: The study is limited by the lack of intravenous contrast. This limits evaluation of the solid organs and vasculature. BONES: There is no displaced fracture or dislocation. The orbital rim is intact. The zygomatic arch is intact. The pterygoid plates are intact. ORBITS: The globes are round. The optic nerves are symmetric. The extraocular musculature is normal. There is preorbital soft tissue swelling of the right, along the inferior orbit extending into the premaxillary soft tissue. There is no post septal or intraconal inflammatory change. There is no retrobulbar hematoma. PARANASAL SINUSES: The paranasal sinuses are clear. BRAIN AND SOFT TISSUE: Unremarkable. OTHER: None. IMPRESSION: PREMAXILLARY AND PREORBITAL SOFT TISSUE SWELLING ON THE RIGHT WITHOUT POST SEPTAL OR INTRACONAL EXTENSION. THERE IS NO DEFINITE LOCULATED FLUID COLLECTION TO SUGGEST ABSCESS, THOUGH EVALUATION IS LIMITED BY LACK OF INTRAVENOUS CONTRAST.
[2018-03-29] MEDS: Ondansetron INJ* 2 MG/ML VIAL IV PRN ×2 (12:07→18:47)
[2018-03-29] MEDS ORDERED: Mouth Piece, Nicotine* 1 EACH CARTRIDGE INH PRN (12:15)
[2018-03-29] MEDS ORDERED: Nicotine Inhaler* 10 MG AMP INH PRN (12:15)
[2018-03-29] MEDS ORDERED: Nicotine GUM* 2 MG PO PRN (12:15)
[2018-03-29] MEDS ORDERED: NS 0.9% 1000 ML* 1,000 ML IV ONE (12:45)
--- NOTE | 2018-03-29 21:21 | CONS ---
CONSULTATION REPORT: DATE OF CONSULT: 03/29/18 REQUESTING PROVIDER: Kaylah Acevedo NP CONSULTING SERVICE: Infectious Disease. REASON FOR CONSULT: Right face infection. IMPRESSION: 1. Right facial cellulitis, possible phlegmon. No evidence of an abscess currently with a small pustule. She has a history of being found to have MRSA in her nares. This could be staphylococcal, could be anaerobic. There has not been a preceeding dental or sinus issue to suggest an association there. She has some orbital edema, but no change in vision. CT scan today did show an abscess. 2. Obesity. 3. Allergic reaction to Zosyn while at [facility]. RECOMMENDATIONS: Agree with vancomycin and clindamycin. We will follow her face exam. It is possible that this may liquify over the next couple days and eventually need debridement, which we could recheck with an ultrasound in a day or two if she develops more fluctuance. At this point, I would continue her current antibiotics and add warm compresses along with Tylenol and ibuprofen. If she does have worsening, then we would reconsider surgical consultation. HISTORY OF PRESENT ILLNESS: This is a 27-year-old woman, who had a small pimple on her right cheek, which she was picking at, could not get any drainage , but then had some pain and swelling, so she went to [facility]. She was discharged on Bactrim, which she took, but had continued swelling of her right cheek, so went back to the ER at [place] and they gave her some Zosyn and got itchy when they gave her Zosyn, felt she was not getting adequate treatment, so she left there and came here after she developed worsening swelling to the point that her right eye swelled shut. She has not had fevers or chills. There is pain in the right cheek. Her white count here was 10. Her C-reactive protein 26. She was started on vancomycin and clindamycin, which she has tolerated well, that was started last night. Swelling is about the same today. She had a CT of her right face that did not show any abscess. There is premaxillary and periorbital soft tissue swelling. She has not had infection requiring hospitalization in the past. There is no puncture, wound, abrasion, bite to that area preceding the illness. PAST MEDICAL HISTORY: 1. Obesity. 2. Asthma. 3. Prediabetes. ALLERGIES: ZOSYN caused itching, THORAZINE caused seizure. MEDICATIONS: 1. Tylenol. 2. Albuterol. 3. Cetirizine. 4. Clindamycin 600 mg IV every 8 hours. 5. Ibuprofen as needed. 6. Morphine as needed. 7. Nicotine gum. 8. Vancomycin 1250 mg IV every 8 hours. SOCIAL HISTORY: She lives in [place] with her partner. She works at [employer] in [place]. She denies injection drug use. FAMILY HISTORY: No recurrent infections. REVIEW OF SYSTEMS: All negative except as noted above in the history of present illness. PHYSICAL EXAM: Vital Signs: Temperature is 36, heart rate 70, respiratory rate 16, blood pressure 92/46, oxygen saturation 98% on room air. In general, she is awake, not in distress. Neurologic: She is oriented x3. Follows all commands. HEENT: There is no conjunctival injection. The right upper and lower eyelids are swollen shut. There is some tenderness with opening them. There is no fluctuance. There is a 2 mm pustule over the right zygomatic arch with surrounding induration. There is no fluctuance or erythema. There is edema and tenderness without crepitus. Neck is supple without mass. Heart is regular rate and rhythm without murmurs, rubs, or gallops. Abdomen: Soft, nontender, nondistended. There are bowel sounds present. Skin: There is no rash or splinter hemorrhage. Musculoskeletal: There is no spine tenderness to palpation. Lymph Nodes: There is right cervical adenopathy, which is tender and mobile. LABORATORY DATA: White blood cell count 10, hemoglobin 12, platelets 421. Creatinine is 0.7. Please see impressions and recommendations as outlined above , which I have discussed with Kaylah Acevedo NP. Thanks for asking me to see Ms. Davis in consultation. [id number]/CPS #: [id number] JACQUELINE
[2018-03-29] MEDS ORDERED: diPHENhydraMINE PO* 25 MG PO ONE (23:00)
[2018-03-30] MEDS: Clindamycin 600 MG IVPREMIX(* 600 MG/50 ML SDV IV SCH ×3 (05:10→20:02)
[2018-03-30] MEDS ORDERED: Vancomycin Trough Check NOTE FOLLOW UP ONE (05:30)
[2018-03-30 06:17] LABS: Vancomycin Trough 17.9 mcg/mL
[2018-03-30] MEDS: oxyCODONE/Acetamin 5/325 MG* TAB PO PRN ×3 (06:23→18:38)
[2018-03-30] MEDS: Vancomycin(*) 1,250 MG in NS 0.9% 250 ML* 250 ML IVPB SCH (06:23)
[2018-03-30] MEDS: Albuterol 2.5 MG/3 ML NEB.SOL* (0.083%) INH PRN (06:44)
[2018-03-30] MEDS: Mometasone/Formoter 100/5 MDI INH SCH ×3 (06:45→20:38)
[2018-03-30] MEDS: NS 0.9% 1000 ML* 1,000 ML IV SCH (08:52)
[2018-03-30] MEDS: diPHENhydraMINE PO* 50 MG PO PRN ×2 (09:45→18:37)
[2018-03-30] MEDS: Cetirizine* 10 MG TAB PO SCH (09:45)
[2018-03-30] MEDS ORDERED: Al Hydrox/Mg Hydrox/Simet LIQ* 30 ML UDC PO PRN (11:40)
[2018-03-30] MEDS: Polyethylene Glycol 3350* 17 GM PACKET PO SCH (12:01)
--- NOTE | 2018-03-30 15:14 | PN ---
Subjective Date of Service: 03/30/18 Interval History: Patient seen and examined. Appears very anxious but states she feels the swelling is better and her vision is no longer obstructed. Denies fevers or chills. States she still has intermittent right frontal headache. Objective Active Medications: Acetaminophen (Tylenol Tab*) 650 mg PO Q4H PRN PRN Reason: FEVER/PAIN Last Admin: 03/29/18 09:19 Dose: 650 mg Al Hydrox/Mg Hydrox/Simethicone (Maalox Plus*) 30 ml PO Q6H PRN PRN Reason: CONSTIPATION Albuterol (Ventolin 2.5 Mg/3 Ml Neb.Lily*) 2.5 mg INH [id number] AWAKE PRN PRN Reason: sob/wheezing Last Admin: 03/30/18 06:44 Dose: 2.5 mg Albuterol (Ventolin Hfa Inhaler*) 2 puff INH Q4H PRN PRN Reason: WHEEZING Cetirizine HCl (Zyrtec*) 10 mg PO DAILY [facility] Last Admin: 03/30/18 09:45 Dose: 10 mg Device (Nicotine Mouth Piece*) 1 each INH .USE WITH NICOTROL PRN PRN Reason: CRAVING Last Admin: 03/29/18 23:12 Dose: 1 each Diphenhydramine HCl (Benadryl Po*) 50 mg PO Q8H PRN PRN Reason: ITCHING Last Admin: 03/30/18 09:45 Dose: 50 mg Clindamycin HCl/Dextrose (Cleocin 600 Mg Ivpremix(*) Sdv) 600 mg in 50 mls @ 100 mls/hr IV Q8H [facility] Last Admin: 03/30/18 13:18 Dose: 100 mls/hr Sodium Chloride (Ns 0.9% 1000 Ml*) 1,000 mls @ 75 mls/hr IV PER RATE [facility] Last Admin: 03/30/18 08:52 Dose: 75 mls/hr Vancomycin HCl 1,000 mg/ (Sodium Chloride) 250 mls @ 166.667 mls/hr IVPB Q8HR [facility] Ibuprofen (Motrin Tab*) 600 mg PO Q6H PRN PRN Reason: PAIN Last Admin: 03/29/18 17:00 Dose: 600 mg Mometasone Furoate/Formoterol Fumar (Dulera 100/5 Mdi*) 2 puff INH BID [facility] Last Admin: 03/30/18 08:29 Dose: Not Given Morphine Sulfate (Morphine Inj (Syringe)*) 2 mg IV Q4H PRN PRN Reason: PAIN - MILD Last Admin: 03/30/18 01:28 Dose: 2 mg Nicotine (Nicotine Inhaler*) 10 mg INH Q2H PRN PRN Reason: CRAVING Last Admin: 03/29/18 23:12 Dose: 10 mg Nicotine Polacrilex (Nicotine Gum*) 2 mg PO Q2H PRN PRN Reason: CRAVING Ondansetron HCl (Zofran Inj*) 4 mg IV Q4H PRN PRN Reason: NAUSEA/VOMITING Last Admin: 03/29/18 18:47 Dose: 4 mg Oxycodone/Acetaminophen (Percocet 5/325 Tab*) 1 tab PO Q4H PRN PRN Reason: Pain Last Admin: 03/30/18 12:01 Dose: 1 tab Pharmacy Consult (Vancomycin Per Pharmacy*) 1 note FOLLOW UP .VANC PER PHARMACY [facility] Pharmacy Profile Note (Vancomycin Trough Check) 1 note FOLLOW UP ONCE ONE Stop: 04/01/18 05:31 Polyethylene Glycol/Electrolytes (Miralax*) 17 gm PO DAILY [facility] Last Admin: 03/30/18 12:01 Dose: 17 gm Vital Signs - 8 hr 03/30/18 03/30/18 03/30/18 07:48 09:12 09:45 Temperature 98.5 F Pulse Rate 74 Respiratory 16 16 16 Rate Blood Pressure 107/59 (mmHg) O2 Sat by Pulse 100 Oximetry 03/30/18 03/30/18 03/30/18 09:56 11:45 11:50 Temperature 98.3 F Pulse Rate 59 Respiratory 16 16 18 Rate Blood Pressure 108/67 (mmHg) O2 Sat by Pulse 100 Oximetry 03/30/18 03/30/18 12:01 15:04 Temperature Pulse Rate Respiratory 16 16 Rate Blood Pressure (mmHg) O2 Sat by Pulse Oximetry Oxygen Devices in Use Now: None Appearance: alert, anxious, appropriate Eyes: No Scleral Icterus, PERRLA, - - less lower lid edema today, wound still with crusting, no exudate at time of exam Ears/Nose/Mouth/Throat: NL Teeth, Lips, Gums, Mucous Membranes Moist Neck: NL Appearance and Movements; NL JVP, Trachea Midline Respiratory: Symmetrical Chest Expansion and Respiratory Effort Cardiovascular: NL Sounds; No Murmurs; No JVD, RRR, No Edema Abdominal: NL Sounds; No Tenderness; No Distention Neurological: Alert and Oriented x 3, NL Muscle Strength and Tone Nutrition: Taking PO's Result Diagrams: 03/29/18 04:59 03/29/18 04:59 Additional Lab and Data: Lab Results 03/28/18 03/28/18 03/28/18 Range/Units 18:48 18:48 18:48 WBC 10.8 (3.5-10.8) 10^3/ul RBC 4.26 (4.00-5.40) 10^6/ul Hgb 12.6 (12.0-16.0) g/dl Hct 37 (35-47) % MCV 87 (80-97) fL MCH 30 (27-31) pg MCHC 34 (31-36) g/dl RDW 14 (10.5-15) % Plt Count 421 (150-450) 10^3/ul MPV 7.9 (7.4-10.4) um3 Neut % (Auto) 76.1 (38-83) % Lymph % (Auto) 14.8 L (25-47) % [place] % (Auto) 6.9 (0-7) % Eos % (Auto) 1.0 (0-6) % Baso % (Auto) 1.2 (0-2) % Absolute Neuts (auto) 8.2 H (1.5-7.7) 10^3/ul Absolute Lymphs (auto) 1.6 (1.0-4.8) 10^3/ul Absolute Monos (auto) 0.7 (0-0.8) 10^3/ul Absolute Eos (auto) 0.1 (0-0.6) 10^3/ul Absolute Basos (auto) 0.1 (0-0.2) 10^3/ul Absolute Nucleated RBC 0 10^3/ul Nucleated RBC % 0 INR (Anticoag Therapy) 1.04 H (0.77-1.02) Sodium 136 (135-145) mmol/L Potassium 3.6 (3.5-5.0) mmol/L Chloride 104 (101-111) mmol/L Carbon Dioxide 28 (22-32) mmol/L Anion Gap 4 (2-11) mmol/L BUN 11 (6-24) mg/dL Creatinine 1.07 H (0.51-0.95) mg/dL Est GFR ( Amer) 73.4 (>60) Est GFR (Non-Af Amer) 60.6 (>60) BUN/Creatinine Ratio 10.3 (8-20) Glucose 102 H (70-100) mg/dL Lactic Acid (0.5-2.0) mmol/L Calcium 9.4 (8.6-10.3) mg/dL Total Bilirubin 0.40 (0.2-1.0) mg/dL AST 16 (13-39) U/L ALT 14 (7-52) U/L Alkaline Phosphatase 62 (34-104) U/L Total Protein 7.6 (6.4-8.9) g/dL Albumin 4.3 (3.2-5.2) g/dL Globulin 3.3 (2-4) g/dL Albumin/Globulin Ratio 1.3 (1-3) 03/28/18 Range/Units 18:48 WBC (3.5-10.8) 10^3/ul RBC (4.00-5.40) 10^6/ul Hgb (12.0-16.0) g/dl Hct (35-47) % MCV (80-97) fL MCH (27-31) pg MCHC (31-36) g/dl RDW (10.5-15) % Plt Count (150-450) 10^3/ul MPV (7.4-10.4) um3 Neut % (Auto) (38-83) % Lymph % (Auto) (25-47) % [place] % (Auto) (0-7) % Eos % (Auto) (0-6) % Baso % (Auto) (0-2) % Absolute Neuts (auto) (1.5-7.7) 10^3/ul Absolute Lymphs (auto) (1.0-4.8) 10^3/ul Absolute Monos (auto) (0-0.8) 10^3/ul Absolute Eos (auto) (0-0.6) 10^3/ul Absolute Basos (auto) (0-0.2) 10^3/ul Absolute Nucleated RBC 10^3/ul Nucleated RBC % INR (Anticoag Therapy) (0.77-1.02) Sodium (135-145) mmol/L Potassium (3.5-5.0) mmol/L Chloride (101-111) mmol/L Carbon Dioxide (22-32) mmol/L Anion Gap (2-11) mmol/L BUN (6-24) mg/dL Creatinine (0.51-0.95) mg/dL Est GFR ( Amer) (>60) Est GFR (Non-Af Amer) (>60) BUN/Creatinine Ratio (8-20) Glucose (70-100) mg/dL Lactic Acid 1.1 (0.5-2.0) mmol/L Calcium (8.6-10.3) mg/dL Total Bilirubin (0.2-1.0) mg/dL AST (13-39) U/L ALT (7-52) U/L Alkaline Phosphatase (34-104) U/L Total Protein (6.4-8.9) g/dL Albumin (3.2-5.2) g/dL Globulin (2-4) g/dL Albumin/Globulin Ratio (1-3) Microbiology and Other Data: Microbiology 03/28/18 21:00 Nasal Screen MRSA (PCR) - Final Nasal Mrsa Detected Diagnostic Imaging: Patient Name: GABI CARLSON Medical Record#: [id number] Ordering Physician: Kaylah Acevedo NP Acct.#: [id number] : 1990 Age: 27 Sex: F Location: [address] [place] [address] MEDICAL Exam Date: 03/29/18941 ADM Status: ADM Lola Order Information: CT MAXILLOFACIAL W/O Accession Number: [id number] CPT: 48409 HISTORY: periorbital cellulitis r/o abscess right cheek COMPARISONS: None TECHNIQUE: Multiple contiguous axial CT scans were obtained of the face without intravenous contrast, with coronal and sagittal multiplanar reformations. FINDINGS: The study is limited by the lack of intravenous contrast. This limits evaluation of the solid organs and vasculature. BONES: There is no displaced fracture or dislocation. The orbital rim is intact. The zygomatic arch is intact. The pterygoid plates are intact. ORBITS: The globes are round. The optic nerves are symmetric. The extraocular musculature is normal. There is preorbital soft tissue swelling of the right, along the inferior orbit extending into the premaxillary soft tissue. There is no post septal or intraconal inflammatory change. There is no retrobulbar hematoma. PARANASAL SINUSES: The paranasal sinuses are clear. BRAIN AND SOFT TISSUE: Unremarkable. OTHER: None. IMPRESSION: PREMAXILLARY AND PREORBITAL SOFT TISSUE SWELLING ON THE RIGHT WITHOUT POST SEPTAL OR INTRACONAL EXTENSION. THERE IS NO DEFINITE LOCULATED FLUID COLLECTION TO SUGGEST ABSCESS, THOUGH EVALUATION IS LIMITED BY LACK OF INTRAVENOUS CONTRAST. <Electronically signed by Reggie Pablo MD in [place]> 03/29/18 1045 Dictated By: Reggie Pablo MD Dictated Date/Time: 03/29/18 1045 Transcribed Date/Time: 03/29/18 1041 Copy to: Assess/Plan/Problems-Billing Assessment: This is a 27 year old female that failed outpatient treatment of a right cheek wound (possible insect bite) and reaction to Zosyn, that presented to ED with increasing periorbital cellulitis. - Patient Problems (1) Periorbital cellulitis of right eye Code(s): L03.213 - PERIORBITAL CELLULITIS SNOMED Code(s): 105223306 Comment: - Appears improved from yesterday - Failed Bactrim, did have positive MRSA swab of the nares - Rash and SOB after having Zosyn in ED at [place] - Continue vanco and clindamycin, follow troughs - ID following, continue current regimen - CT scan as above, no abscess, per ID, may be a phlegmon that may coalesce - Can US if would progresses, but will contact Plastics if I&D is warranted given patient history of keloid formation - Wound care nurse consult appreciated, compresses PRN - Pain control and benadryl for itching (2) Diabetes Code(s): E11.9 - TYPE 2 DIABETES MELLITUS WITHOUT COMPLICATIONS SNOMED Code(s) : 38089833 Comment: - "borderline" per patient - A1c = 5.7, recommend dietary changes and weight loss (3) Asthma Code(s): J45.909 - UNSPECIFIED ASTHMA, UNCOMPLICATED SNOMED Code(s): 680860931 Comment: - Not in exacerbation - Albuterol PRN (4) DVT prophylaxis Code(s): NKP0032 - SNOMED Code(s): 675802887 Comment: - Low risk, ambulate ad betsy Status and Disposition: Inpatient.
[2018-03-30] MEDS: Ondansetron INJ* 2 MG/ML VIAL IV PRN (18:37)
[2018-03-30] MEDS: Morphine VIAL* 4 MG/ML VIAL (1 ml vial) IV PRN (20:31)
[2018-03-30] MEDS: Vancomycin(*) 1,000 MG in NS 0.9% 250 ML* 250 ML IVPB SCH (22:08)
[2018-03-31] MEDS: NS 0.9% 1000 ML* 1,000 ML IV SCH (01:55)
[2018-03-31] MEDS: Ibuprofen TAB* 600 MG PO PRN (03:03)
[2018-03-31] MEDS: oxyCODONE/Acetamin 5/325 MG* TAB PO PRN ×2 (03:03→15:38)
[2018-03-31] MEDS: diPHENhydraMINE PO* 50 MG PO PRN ×3 (03:05→22:54)
[2018-03-31] MEDS: Clindamycin 600 MG IVPREMIX(* 600 MG/50 ML SDV IV SCH ×3 (04:05→20:01)
[2018-03-31] MEDS: Vancomycin(*) 1,000 MG in NS 0.9% 250 ML* 250 ML IVPB SCH ×2 (05:25→19:16)
--- NOTE | 2018-03-31 10:53 | PN ---
Subjective Date of Service: 03/31/18 Interval History: Patient denies fever or chills. Swelling continued to improve , continues to have tenderness and swelling to right cheek, with a small amount of purulent drainage. Denies shortness or chest pain at this time. Wound culture positive for MRSA. Family History: Unchanged from Admission Social History: Unchanged from Admission Past Medical History: Unchanged from Admission Objective Active Medications: Acetaminophen (Tylenol Tab*) 650 mg PO Q4H PRN PRN Reason: FEVER/PAIN Last Admin: 03/29/18 09:19 Dose: 650 mg Al Hydrox/Mg Hydrox/Simethicone (Maalox Plus*) 30 ml PO Q6H PRN PRN Reason: CONSTIPATION Last Admin: 03/30/18 20:02 Dose: 30 ml Albuterol (Ventolin 2.5 Mg/3 Ml Neb.Lily*) 2.5 mg INH [id number] AWAKE PRN PRN Reason: sob/wheezing Last Admin: 03/30/18 06:44 Dose: 2.5 mg Albuterol (Ventolin Hfa Inhaler*) 2 puff INH Q4H PRN PRN Reason: WHEEZING Cetirizine HCl (Zyrtec*) 10 mg PO DAILY [facility] Last Admin: 03/30/18 09:45 Dose: 10 mg Device (Nicotine Mouth Piece*) 1 each INH .USE WITH NICOTROL PRN PRN Reason: CRAVING Last Admin: 03/29/18 23:12 Dose: 1 each Diphenhydramine HCl (Benadryl Po*) 50 mg PO Q8H PRN PRN Reason: ITCHING Last Admin: 03/31/18 03:05 Dose: 50 mg Clindamycin HCl/Dextrose (Cleocin 600 Mg Ivpremix(*) Sdv) 600 mg in 50 mls @ 100 mls/hr IV Q8H [facility] Last Admin: 03/31/18 04:05 Dose: 100 mls/hr Sodium Chloride (Ns 0.9% 1000 Ml*) 1,000 mls @ 75 mls/hr IV PER RATE [facility] Last Admin: 03/31/18 01:55 Dose: 75 mls/hr Vancomycin HCl 1,000 mg/ (Sodium Chloride) 250 mls @ 166.667 mls/hr IVPB Q8HR [facility] Last Admin: 03/31/18 05:25 Dose: 166.667 mls/hr Ibuprofen (Motrin Tab*) 600 mg PO Q6H PRN PRN Reason: PAIN Last Admin: 03/31/18 03:03 Dose: 600 mg Mometasone Furoate/Formoterol Fumar (Dulera 100/5 Mdi*) 2 puff INH BID [facility] Last Admin: 03/30/18 20:38 Dose: 2 puff Morphine Sulfate (Morphine Vial*) 2 mg IV Q4H PRN PRN Reason: PAIN - MILD Last Admin: 03/30/18 20:31 Dose: 2 mg Nicotine (Nicotine Inhaler*) 10 mg INH Q2H PRN PRN Reason: CRAVING Last Admin: 03/29/18 23:12 Dose: 10 mg Nicotine Polacrilex (Nicotine Gum*) 2 mg PO Q2H PRN PRN Reason: CRAVING Ondansetron HCl (Zofran Inj*) 4 mg IV Q4H PRN PRN Reason: NAUSEA/VOMITING Last Admin: 03/30/18 18:37 Dose: 4 mg Oxycodone/Acetaminophen (Percocet 5/325 Tab*) 1 tab PO Q4H PRN PRN Reason: Pain Last Admin: 03/31/18 03:03 Dose: 1 tab Pharmacy Consult (Vancomycin Per Pharmacy*) 1 note FOLLOW UP .VANC PER PHARMACY [facility] Pharmacy Profile Note (Vancomycin Trough Check) 1 note FOLLOW UP ONCE ONE Stop: 04/01/18 05:31 Polyethylene Glycol/Electrolytes (Miralax*) 17 gm PO DAILY [facility] Last Admin: 03/30/18 12:01 Dose: 17 gm Vital Signs - 8 hr 03/31/18 03/31/18 03/31/18 03:03 03:05 03:22 Temperature 98.2 F Pulse Rate 58 Respiratory 18 18 16 Rate Blood Pressure 113/59 (mmHg) O2 Sat by Pulse 97 Oximetry 03/31/18 03/31/18 03/31/18 05:17 05:18 07:53 Temperature 98.4 F Pulse Rate 64 Respiratory 18 16 18 Rate Blood Pressure 100/52 (mmHg) O2 Sat by Pulse 100 Oximetry Oxygen Devices in Use Now: None Appearance: alert , no acute distress Eyes: No Scleral Icterus Ears/Nose/Mouth/Throat: Clear Oropharnyx, Mucous Membranes Moist Neck: NL Appearance and Movements; NL JVP, Trachea Midline Respiratory: Symmetrical Chest Expansion and Respiratory Effort, Clear to Auscultation Cardiovascular: NL Sounds; No Murmurs; No JVD, No Edema Abdominal: NL Sounds; No Tenderness; No Distention Lymphatic: - - cervical lymphadenopathy positive Extremities: No Edema, No Clubbing, Cyanosis Skin: - - right cheek with small open area, center of the area white discoloration, scant amt of serosang drainage Neurological: Alert and Oriented x 3 Nutrition: Taking PO's Result Diagrams: 03/29/18 04:59 03/29/18 04:59 Additional Lab and Data: Lab Results 03/28/18 03/28/18 03/28/18 Range/Units 18:48 18:48 18:48 WBC 10.8 (3.5-10.8) 10^3/ul RBC 4.26 (4.00-5.40) 10^6/ul Hgb 12.6 (12.0-16.0) g/dl Hct 37 (35-47) % MCV 87 (80-97) fL MCH 30 (27-31) pg MCHC 34 (31-36) g/dl RDW 14 (10.5-15) % Plt Count 421 (150-450) 10^3/ul MPV 7.9 (7.4-10.4) um3 Neut % (Auto) 76.1 (38-83) % Lymph % (Auto) 14.8 L (25-47) % [place] % (Auto) 6.9 (0-7) % Eos % (Auto) 1.0 (0-6) % Baso % (Auto) 1.2 (0-2) % Absolute Neuts (auto) 8.2 H (1.5-7.7) 10^3/ul Absolute Lymphs (auto) 1.6 (1.0-4.8) 10^3/ul Absolute Monos (auto) 0.7 (0-0.8) 10^3/ul Absolute Eos (auto) 0.1 (0-0.6) 10^3/ul Absolute Basos (auto) 0.1 (0-0.2) 10^3/ul Absolute Nucleated RBC 0 10^3/ul Nucleated RBC % 0 INR (Anticoag Therapy) 1.04 H (0.77-1.02) Sodium 136 (135-145) mmol/L Potassium 3.6 (3.5-5.0) mmol/L Chloride 104 (101-111) mmol/L Carbon Dioxide 28 (22-32) mmol/L Anion Gap 4 (2-11) mmol/L BUN 11 (6-24) mg/dL Creatinine 1.07 H (0.51-0.95) mg/dL Est GFR ( Amer) 73.4 (>60) Est GFR (Non-Af Amer) 60.6 (>60) BUN/Creatinine Ratio 10.3 (8-20) Glucose 102 H (70-100) mg/dL Lactic Acid (0.5-2.0) mmol/L Calcium 9.4 (8.6-10.3) mg/dL Total Bilirubin 0.40 (0.2-1.0) mg/dL AST 16 (13-39) U/L ALT 14 (7-52) U/L Alkaline Phosphatase 62 (34-104) U/L Total Protein 7.6 (6.4-8.9) g/dL Albumin 4.3 (3.2-5.2) g/dL Globulin 3.3 (2-4) g/dL Albumin/Globulin Ratio 1.3 (1-3) 03/28/18 Range/Units 18:48 WBC (3.5-10.8) 10^3/ul RBC (4.00-5.40) 10^6/ul Hgb (12.0-16.0) g/dl Hct (35-47) % MCV (80-97) fL MCH (27-31) pg MCHC (31-36) g/dl RDW (10.5-15) % Plt Count (150-450) 10^3/ul MPV (7.4-10.4) um3 Neut % (Auto) (38-83) % Lymph % (Auto) (25-47) % [place] % (Auto) (0-7) % Eos % (Auto) (0-6) % Baso % (Auto) (0-2) % Absolute Neuts (auto) (1.5-7.7) 10^3/ul Absolute Lymphs (auto) (1.0-4.8) 10^3/ul Absolute Monos (auto) (0-0.8) 10^3/ul Absolute Eos (auto) (0-0.6) 10^3/ul Absolute Basos (auto) (0-0.2) 10^3/ul Absolute Nucleated RBC 10^3/ul Nucleated RBC % INR (Anticoag Therapy) (0.77-1.02) Sodium (135-145) mmol/L Potassium (3.5-5.0) mmol/L Chloride (101-111) mmol/L Carbon Dioxide (22-32) mmol/L Anion Gap (2-11) mmol/L BUN (6-24) mg/dL Creatinine (0.51-0.95) mg/dL Est GFR ( Amer) (>60) Est GFR (Non-Af Amer) (>60) BUN/Creatinine Ratio (8-20) Glucose (70-100) mg/dL Lactic Acid 1.1 (0.5-2.0) mmol/L Calcium (8.6-10.3) mg/dL Total Bilirubin (0.2-1.0) mg/dL AST (13-39) U/L ALT (7-52) U/L Alkaline Phosphatase (34-104) U/L Total Protein (6.4-8.9) g/dL Albumin (3.2-5.2) g/dL Globulin (2-4) g/dL Albumin/Globulin Ratio (1-3) Microbiology and Other Data: Microbiology 03/28/18 21:00 Nasal Screen MRSA (PCR) - Final Nasal Mrsa Detected Diagnostic Imaging: Patient Name: GABI CARLSON Medical Record#: [id number] Ordering Physician: Kaylah Acevedo NP Acct.#: [id number] : 1990 Age: 27 Sex: F Location: [address] [place] [address] MEDICAL Exam Date: 03/29/18941 ADM Status: ADM Lola Order Information: CT MAXILLOFACIAL W/O Accession Number: [id number] CPT: 50860 HISTORY: periorbital cellulitis r/o abscess right cheek COMPARISONS: None TECHNIQUE: Multiple contiguous axial CT scans were obtained of the face without intravenous contrast, with coronal and sagittal multiplanar reformations. FINDINGS: The study is limited by the lack of intravenous contrast. This limits evaluation of the solid organs and vasculature. BONES: There is no displaced fracture or dislocation. The orbital rim is intact. The zygomatic arch is intact. The pterygoid plates are intact. ORBITS: The globes are round. The optic nerves are symmetric. The extraocular musculature is normal. There is preorbital soft tissue swelling of the right, along the inferior orbit extending into the premaxillary soft tissue. There is no post septal or intraconal inflammatory change. There is no retrobulbar hematoma. PARANASAL SINUSES: The paranasal sinuses are clear. BRAIN AND SOFT TISSUE: Unremarkable. OTHER: None. IMPRESSION: PREMAXILLARY AND PREORBITAL SOFT TISSUE SWELLING ON THE RIGHT WITHOUT POST SEPTAL OR INTRACONAL EXTENSION. THERE IS NO DEFINITE LOCULATED FLUID COLLECTION TO SUGGEST ABSCESS, THOUGH EVALUATION IS LIMITED BY LACK OF INTRAVENOUS CONTRAST. <Electronically signed by Reggie Pablo MD in [place]> 03/29/18 104 Dictated By: Reggie Pablo MD Dictated Date/Time: 03/29/18 104 Transcribed Date/Time: 03/29/18 1041 Copy to: Assess/Plan/Problems-Billing Assessment: This is a 27 year old female that failed outpatient treatment of a right cheek wound (possible insect bite) and reaction to Zosyn, that presented to ED with increasing periorbital cellulitis. - Patient Problems (1) Periorbital cellulitis of right eye Current Visit: Yes Status: Acute Code(s): L03.213 - PERIORBITAL CELLULITIS SNOMED Code(s): 724640184 Comment: - Appears improved- remains afebrile - Failed Bactrim, did have positive MRSA wound swab - Rash and SOB after having Zosyn in ED at [facility] - Continue vanco and clindamycin, follow troughs - ID following, continue current regimen - Will get ultrasound of the wound today to evaluate for abscess - - will contact Plastics if I&D is warranted given patient history of keloid formation - Wound care nurse consult appreciated, compresses PRN - Pain control and benadryl for itching (2) Asthma Current Visit: Yes Status: Acute Code(s): J45.909 - UNSPECIFIED ASTHMA, UNCOMPLICATED SNOMED Code(s): 637839989 Comment: - Not in exacerbation - Albuterol PRN (3) Diabetes Current Visit: Yes Status: Acute Code(s): E11.9 - TYPE 2 DIABETES MELLITUS WITHOUT COMPLICATIONS SNOMED Code(s): 50991799 Comment: - "borderline" per patient - A1c = 5.7, recommend dietary changes and weight loss (4) DVT prophylaxis Current Visit: Yes Status: Acute Code(s): BJD2901 - SNOMED Code(s): 248089482 Comment: - Low risk, ambulate ad betsy Status and Disposition: Inpatient.
[2018-03-31] MEDS: Cetirizine* 10 MG TAB PO SCH (11:11)
[2018-03-31] MEDS: Polyethylene Glycol 3350* 17 GM PACKET PO SCH (11:11)
[2018-03-31] MEDS: Mometasone/Formoter 100/5 MDI INH SCH ×2 (11:21→20:11)
--- NOTE | 2018-03-31 14:20 | RAD ---
HISTORY: swelling right cheek, r/o abscess COMPARISONS: CT dated March 29, 2018 TECHNIQUE: Multiple transverse and longitudinal ultrasound images were obtained of the area of clinical abnormality using grayscale and color Doppler imaging. FINDINGS: In the area of clinical abdomen to lung the right cheek, there is a diffusely hypoechoic tissue, measuring 1 x 0.8 x 0.6 cm in size, that is adjacent to the skin with increased echogenicity of the adjacent fat. There is definite loculated fluid collection. IMPRESSION: HETEROGENOUS HYPOECHOIC TISSUE IN THE AREA OF CLINICAL ABNORMALITY SUGGESTIVE OF PHLEGMON, WITHOUT DEFINITE LOCULATED FLUID COLLECTION TO SUGGEST ABSCESS. THERE IS ASSOCIATED INFLAMMATORY CHANGE OF THE ADJACENT FAT.
[2018-03-31] MEDS: Morphine VIAL* 4 MG/ML VIAL (1 ml vial) IV PRN (20:13)
[2018-04-01] MEDS: Vancomycin(*) 1,000 MG in NS 0.9% 250 ML* 250 ML IVPB SCH ×2 (02:05→10:59)
[2018-04-01] MEDS: Clindamycin 600 MG IVPREMIX(* 600 MG/50 ML SDV IV SCH ×2 (04:17→12:00)
[2018-04-01] MEDS: Mometasone/Formoter 100/5 MDI INH SCH (07:59)
[2018-04-01 08:20] VITALS: BP 110/70
[2018-04-01] MEDS: Cetirizine* 10 MG TAB PO SCH (08:27)
[2018-04-01] MEDS: oxyCODONE/Acetamin 5/325 MG* TAB PO PRN (08:27)
[2018-04-01] MEDS: Polyethylene Glycol 3350* 17 GM PACKET PO SCH (08:28)
[2018-04-01] MEDS: diPHENhydraMINE PO* 50 MG PO PRN (08:30)
--- NOTE | 2018-04-01 09:34 | PN ---
Subjective Date of Service: 04/01/18 Interval History: Patient reports that swelling is improved, expresses concern about white discoloration of the center of the wound. continues to have tenderness to palpation to right cheek. Denies chest pain or shortness of breath. Denies abd pain. does report nausea after taking percocet this AM. Family History: Unchanged from Admission Social History: Unchanged from Admission Past Medical History: Unchanged from Admission Objective Active Medications: Acetaminophen (Tylenol Tab*) 650 mg PO Q4H PRN PRN Reason: FEVER/PAIN Last Admin: 03/29/18 09:19 Dose: 650 mg Al Hydrox/Mg Hydrox/Simethicone (Maalox Plus*) 30 ml PO Q6H PRN PRN Reason: CONSTIPATION Last Admin: 03/30/18 20:02 Dose: 30 ml Albuterol (Ventolin 2.5 Mg/3 Ml Neb.Lily*) 2.5 mg INH RT.[id number] AWAKE PRN PRN Reason: sob/wheezing Last Admin: 03/30/18 06:44 Dose: 2.5 mg Albuterol (Ventolin Hfa Inhaler*) 2 puff INH Q4H PRN PRN Reason: WHEEZING Cetirizine HCl (Zyrtec*) 10 mg PO DAILY [facility] Last Admin: 04/01/18 08:27 Dose: 10 mg Device (Nicotine Mouth Piece*) 1 each INH .USE WITH NICOTROL PRN PRN Reason: CRAVING Last Admin: 03/29/18 23:12 Dose: 1 each Diphenhydramine HCl (Benadryl Po*) 50 mg PO Q8H PRN PRN Reason: ITCHING Last Admin: 04/01/18 08:30 Dose: 50 mg Clindamycin HCl/Dextrose (Cleocin 600 Mg Ivpremix(*) Sdv) 600 mg in 50 mls @ 100 mls/hr IV Q8H [facility] Last Admin: 04/01/18 04:17 Dose: 100 mls/hr Sodium Chloride (Ns 0.9% 1000 Ml*) 1,000 mls @ 75 mls/hr IV PER RATE [facility] Last Admin: 03/31/18 01:55 Dose: 75 mls/hr Vancomycin HCl 1,000 mg/ (Sodium Chloride) 250 mls @ 166.667 mls/hr IVPB 0230, 1030,1830 [facility] Last Admin: 04/01/18 02:05 Dose: 166.667 mls/hr Ibuprofen (Motrin Tab*) 600 mg PO Q6H PRN PRN Reason: PAIN Last Admin: 03/31/18 03:03 Dose: 600 mg Mometasone Furoate/Formoterol Fumar (Dulera 100/5 Mdi*) 2 puff INH BID [facility] Last Admin: 04/01/18 07:59 Dose: 2 puff Morphine Sulfate (Morphine Vial*) 2 mg IV Q4H PRN PRN Reason: PAIN - MILD Last Admin: 03/31/18 20:13 Dose: 2 mg Nicotine (Nicotine Inhaler*) 10 mg INH Q2H PRN PRN Reason: CRAVING Last Admin: 03/29/18 23:12 Dose: 10 mg Nicotine Polacrilex (Nicotine Gum*) 2 mg PO Q2H PRN PRN Reason: CRAVING Ondansetron HCl (Zofran Inj*) 4 mg IV Q4H PRN PRN Reason: NAUSEA/VOMITING Last Admin: 03/30/18 18:37 Dose: 4 mg Oxycodone/Acetaminophen (Percocet 5/325 Tab*) 1 tab PO Q4H PRN PRN Reason: Pain Last Admin: 04/01/18 08:27 Dose: 1 tab Pharmacy Consult (Vancomycin Per Pharmacy*) 1 note FOLLOW UP .VANC PER PHARMACY [facility] Pharmacy Profile Note (Vancomycin Trough Check) 1 note FOLLOW UP ONCE ONE Stop: 04/01/18 10:01 Polyethylene Glycol/Electrolytes (Miralax*) 17 gm PO DAILY [facility] Last Admin: 04/01/18 08:28 Dose: Not Given Vital Signs - 8 hr 04/01/18 04/01/18 04/01/18 02:06 04:02 07:41 Temperature 98.4 F 98.1 F Pulse Rate 59 79 Respiratory 16 16 20 Rate Blood Pressure 105/68 110/70 (mmHg) O2 Sat by Pulse 100 100 Oximetry 04/01/18 04/01/18 04/01/18 08:00 08:27 08:30 Temperature Pulse Rate 81 Respiratory 16 18 18 Rate Blood Pressure (mmHg) O2 Sat by Pulse 98 Oximetry 04/01/18 08:34 Temperature Pulse Rate Respiratory 18 Rate Blood Pressure (mmHg) O2 Sat by Pulse Oximetry Oxygen Devices in Use Now: None Appearance: alert, resting in bed, no acute distress Eyes: No Scleral Icterus Ears/Nose/Mouth/Throat: Clear Oropharnyx, Mucous Membranes Moist Neck: NL Appearance and Movements; NL JVP, Trachea Midline Respiratory: Symmetrical Chest Expansion and Respiratory Effort, Clear to Auscultation Cardiovascular: NL Sounds; No Murmurs; No JVD, No Edema Abdominal: NL Sounds; No Tenderness; No Distention Extremities: No Edema, No Clubbing, Cyanosis Skin: - - small open area noted to right cheek, scant amt of purulent drainage noted. Neurological: Alert and Oriented x 3 Result Diagrams: 03/29/18 04:59 03/29/18 04:59 Additional Lab and Data: Lab Results 03/28/18 03/28/18 03/28/18 Range/Units 18:48 18:48 18:48 WBC 10.8 (3.5-10.8) 10^3/ul RBC 4.26 (4.00-5.40) 10^6/ul Hgb 12.6 (12.0-16.0) g/dl Hct 37 (35-47) % MCV 87 (80-97) fL MCH 30 (27-31) pg MCHC 34 (31-36) g/dl RDW 14 (10.5-15) % Plt Count 421 (150-450) 10^3/ul MPV 7.9 (7.4-10.4) um3 Neut % (Auto) 76.1 (38-83) % Lymph % (Auto) 14.8 L (25-47) % Real % (Auto) 6.9 (0-7) % Eos % (Auto) 1.0 (0-6) % Baso % (Auto) 1.2 (0-2) % Absolute Neuts (auto) 8.2 H (1.5-7.7) 10^3/ul Absolute Lymphs (auto) 1.6 (1.0-4.8) 10^3/ul Absolute Monos (auto) 0.7 (0-0.8) 10^3/ul Absolute Eos (auto) 0.1 (0-0.6) 10^3/ul Absolute Basos (auto) 0.1 (0-0.2) 10^3/ul Absolute Nucleated RBC 0 10^3/ul Nucleated RBC % 0 INR (Anticoag Therapy) 1.04 H (0.77-1.02) Sodium 136 (135-145) mmol/L Potassium 3.6 (3.5-5.0) mmol/L Chloride 104 (101-111) mmol/L Carbon Dioxide 28 (22-32) mmol/L Anion Gap 4 (2-11) mmol/L BUN 11 (6-24) mg/dL Creatinine 1.07 H (0.51-0.95) mg/dL Est GFR ( Amer) 73.4 (>60) Est GFR (Non-Af Amer) 60.6 (>60) BUN/Creatinine Ratio 10.3 (8-20) Glucose 102 H (70-100) mg/dL Lactic Acid (0.5-2.0) mmol/L Calcium 9.4 (8.6-10.3) mg/dL Total Bilirubin 0.40 (0.2-1.0) mg/dL AST 16 (13-39) U/L ALT 14 (7-52) U/L Alkaline Phosphatase 62 (34-104) U/L Total Protein 7.6 (6.4-8.9) g/dL Albumin 4.3 (3.2-5.2) g/dL Globulin 3.3 (2-4) g/dL Albumin/Globulin Ratio 1.3 (1-3) 03/28/18 Range/Units 18:48 WBC (3.5-10.8) 10^3/ul RBC (4.00-5.40) 10^6/ul Hgb (12.0-16.0) g/dl Hct (35-47) % MCV (80-97) fL MCH (27-31) pg MCHC (31-36) g/dl RDW (10.5-15) % Plt Count (150-450) 10^3/ul MPV (7.4-10.4) um3 Neut % (Auto) (38-83) % Lymph % (Auto) (25-47) % Real % (Auto) (0-7) % Eos % (Auto) (0-6) % Baso % (Auto) (0-2) % Absolute Neuts (auto) (1.5-7.7) 10^3/ul Absolute Lymphs (auto) (1.0-4.8) 10^3/ul Absolute Monos (auto) (0-0.8) 10^3/ul Absolute Eos (auto) (0-0.6) 10^3/ul Absolute Basos (auto) (0-0.2) 10^3/ul Absolute Nucleated RBC 10^3/ul Nucleated RBC % INR (Anticoag Therapy) (0.77-1.02) Sodium (135-145) mmol/L Potassium (3.5-5.0) mmol/L Chloride (101-111) mmol/L Carbon Dioxide (22-32) mmol/L Anion Gap (2-11) mmol/L BUN (6-24) mg/dL Creatinine (0.51-0.95) mg/dL Est GFR ( Amer) (>60) Est GFR (Non-Af Amer) (>60) BUN/Creatinine Ratio (8-20) Glucose (70-100) mg/dL Lactic Acid 1.1 (0.5-2.0) mmol/L Calcium (8.6-10.3) mg/dL Total Bilirubin (0.2-1.0) mg/dL AST (13-39) U/L ALT (7-52) U/L Alkaline Phosphatase (34-104) U/L Total Protein (6.4-8.9) g/dL Albumin (3.2-5.2) g/dL Globulin (2-4) g/dL Albumin/Globulin Ratio (1-3) Microbiology and Other Data: Microbiology 03/28/18 21:00 Nasal Screen MRSA (PCR) - Final Nasal Mrsa Detected Diagnostic Imaging: Patient Name: GABI CARLSON Medical Record#: [id number] Ordering Physician: Kaylah Acevedo NP Acct.#: [id number] : 1990 Age: 27 Sex: F Location: [address] [place] [address] MEDICAL Exam Date: 03/29/18941 ADM Status: ADM Lola Order Information: CT MAXILLOFACIAL W/O Accession Number: [id number] CPT: 89153 HISTORY: periorbital cellulitis r/o abscess right cheek COMPARISONS: None TECHNIQUE: Multiple contiguous axial CT scans were obtained of the face without intravenous contrast, with coronal and sagittal multiplanar reformations. FINDINGS: The study is limited by the lack of intravenous contrast. This limits evaluation of the solid organs and vasculature. BONES: There is no displaced fracture or dislocation. The orbital rim is intact. The zygomatic arch is intact. The pterygoid plates are intact. ORBITS: The globes are round. The optic nerves are symmetric. The extraocular musculature is normal. There is preorbital soft tissue swelling of the right, along the inferior orbit extending into the premaxillary soft tissue. There is no post septal or intraconal inflammatory change. There is no retrobulbar hematoma. PARANASAL SINUSES: The paranasal sinuses are clear. BRAIN AND SOFT TISSUE: Unremarkable. OTHER: None. IMPRESSION: PREMAXILLARY AND PREORBITAL SOFT TISSUE SWELLING ON THE RIGHT WITHOUT POST SEPTAL OR INTRACONAL EXTENSION. THERE IS NO DEFINITE LOCULATED FLUID COLLECTION TO SUGGEST ABSCESS, THOUGH EVALUATION IS LIMITED BY LACK OF INTRAVENOUS CONTRAST. <Electronically signed by Reggie Pablo MD in [place]> 03/29/18 104 Dictated By: Reggie Pablo MD Dictated Date/Time: 03/29/18 104 Transcribed Date/Time: 03/29/18 1041 Copy to: Assess/Plan/Problems-Billing Assessment: This is a 27 year old female that failed outpatient treatment of a right cheek wound (possible insect bite) and reaction to Zosyn, that presented to ED with increasing periorbital cellulitis. - Patient Problems (1) Periorbital cellulitis of right eye Current Visit: Yes Status: Acute Code(s): L03.213 - PERIORBITAL CELLULITIS SNOMED Code(s): 129165030 Comment: - Appears improved- remains afebrile - Failed Bactrim, did have positive MRSA wound swab - Rash and SOB after having Zosyn in ED at [facility] - Continue vanco and clindamycin - will switch to PO - ID following, continue current regimen - Will get ultrasound of the wound today to evaluate for abscess - - will contact Plastics if I&D is warranted given patient history of keloid formation - Wound care nurse consult appreciated, compresses PRN - Pain control and benadryl for itching (2) Asthma Current Visit: Yes Status: Acute Code(s): J45.909 - UNSPECIFIED ASTHMA, UNCOMPLICATED SNOMED Code(s): 339786337 Comment: - Not in exacerbation - Albuterol PRN (3) Diabetes Current Visit: Yes Status: Acute Code(s): E11.9 - TYPE 2 DIABETES MELLITUS WITHOUT COMPLICATIONS SNOMED Code(s): 33816324 Comment: - "borderline" per patient - A1c = 5.7, recommend dietary changes and weight loss (4) DVT prophylaxis Current Visit: Yes Status: Acute Code(s): TRU9689 - SNOMED Code(s): 943326936 Comment: - Low risk, ambulate ad betsy Status and Disposition: discharge home
[2018-04-01] MEDS ORDERED: Vancomycin Trough Check NOTE FOLLOW UP ONE (10:00)
--- NOTE | 2018-04-01 10:29 | PN ---
Progress Note - Progress Note Date of Service: 04/01/18 SOAP: Subjective: CC: abscess HPI: 27 year old woman with right face abscess; much improved swelling, drainage has decreased as has the pain. No fever, rash, or diarrhea. Objective: Vital Signs Temp 36.7 C 04/01/18 07:41 Pulse 81 04/01/18 08:00 Resp 18 04/01/18 09:54 BP 110/70 04/01/18 07:41 Pulse Ox 98 04/01/18 08:00 Intake & Output 03/31/18 04/01/18 04/01/18 18:59 06:59 18:59 Intake Total 580 3779 120 Output Total 0 Balance 580 3779 120 Intake: IV Fluids 1892 NS (0.9%) 1892 IVPB 1887 NS (0.9%) 1887 Oral 580 0 120 Output: Urine 0 Other: Estimated Void Large # Bowel Movements 0 # Voids 1 Gen:awake, no distress HEENT: no thrush Heart:RRR no murmur Lungs:CTA BL Abd:+BS NTND soft Skin: no rash; R face mild edema more focal induration; central 2 mm eschar Microbiology 03/28/18 18:47 Aerobic Blood Culture - Preliminary Blood Venous No Growth Day 3 Anaerobic Blood Culture - Preliminary No Growth Day 3 03/28/18 18:47 Aerobic Blood Culture - Preliminary Blood Venous No Growth Day 3 Anaerobic Blood Culture - Preliminary No Growth Day 3 Assessment: 1. MRSA face abscess and cellulitis 2. obesity US no drainable collection Plan: 1. doxycycline 100 mg po bid for 10 more days, fu with me next week. No indication for surgery 35 minutes floor time >50% face to face in counseling regarding treatment plans and her desire for I&D which I think would not speed healing but would incr risk of large scar
--- NOTE | 2018-04-04 08:58 | DS ---
CC: Dr. Meade; [facility] DISCHARGE SUMMARY: DATE OF ADMISSION: 03/28/18 DATE OF DISCHARGE: 04/01/18 ATTENDING PHYSICIAN: Melissa Ortiz MD (dictated by Deisy Deshpande NP). PRIMARY CARE PROVIDER: [facility]. PRIMARY DIAGNOSES: 1. Right periorbital cellulitis. 2. Facial wound with methicillin-resistant Staphylococcus aureus. SECONDARY DIAGNOSES: 1. Asthma. 2. Borderline diabetes. STUDIES COMPLETED WHILE IN THE HOSPITAL: She had a maxillofacial CT on 03/29/18. Radiologist's impre ssion: Premaxillary and periorbital soft tissue swelling on the right without postseptal or intracan al extension. There is no definite loculated fluid collection to suggest abscess, though evaluation is limited by the lack of intravenous contrast. She had a soft tissue ultrasound on 03/31/18, radiol ogist's impression: Heterogeneous hypoechoic tissue in the area of clinical abnormalities suggestive of a phlegmon without definite loculated fluid collection to suggest abscess. There is associated i nflammatory changes in the adjacent fat. DISCHARGE MEDICATIONS: New home medications: 1. Doxycycline 100 mg p.o. b.i.d. for 10 days. 2. Tramadol 50 mg p.o. q.8 hours as needed for severe pain, dispensed #6. She was I-STOP 'd. I-STO P number was [id number]. She has had no prior prescriptions filled. 3. Miconazole 2% cream as needed for yeast infection. Continued home medications: 1. Ventolin 2 puffs q.4 to 6 hours as needed for shortness of breath. 2. Symbicort 1 inhale b.i.d. 3. Loratadine daily. HISTORY OF PRESENT ILLNESS AND HOSPITAL COURSE: Ms. Davis is a 27-year-old female who carries a past medical history of asthma and prediabetes, who presented to the emergency room stating she had a pim ple-type lesion on her right cheek, which she manipulated on Wednesday but there was no drainage. She r eports that she was bit by a bug on on her right cheek and then developed this pimple-type l esion. She tried to express drainage but was unable to. She went to [facility] and the provi gregg there attempted to drain the pimple again, there was no drainage. She states that she was placed on Bactrim and discharged home. She took 2 doses of Bactrim at home and reports the swelling contin ued, therefore she presented to [facility] and while in [place], she was given a dose of Zosy n and had a CT and had the plan to admit her. She states she had an allergic reaction to ZOSYN, kevin me itchy and they gave her Benadryl. She states that it was too long for them to admit her to [facility], therefore she left [place]. On her day of admission, the swelling progressively became worse, so she presented to the ED for further evaluation. She denies any fever or chills, denies any pain with ey e movement, denies any visual changes, denies any headache or dizziness, denies neck pain. Due to these symptoms, we were asked to see and evaluate her for admission. While in the ED, her vit al signs remained stable. She received clindamycin, vancomycin, some normal saline, and pain medicat ion. She had a routine blood work drawn with cultures. Throughout her hospitalization, the right facial swelling continued to improve with IV antibiotics. She remained on clindamycin and vancomycin throughout her hospitalization. She did have a repeat ult rasound on 03/31/18 that showed no drainable abscess. Given that her symptoms are resolving, the pat ient's swelling is improving and she has no ocular motor deficits, she has been afebrile throughout h er hospitalization and her vital signs have been stable, she is stable for discharge home. Ms. Davis will be discharged home. Vital Signs: Temperature was 98.1, heart rate was 79, respiratio ns were 16, O2 saturation 100%, blood pressure 110/70. DISCHARGE PLAN: Ms. Davis will be discharged back home. Activity as tolerated. She should continue on a consistent carb diet. 1. Right facial cellulitis. She should continue on doxycycline 100 mg p.o. b.i.d. for 10 days as re commended by Dr. Meade from Infectious Disease. She should follow up with Dr. Meade in 1 to 2 weeks. She should continue with warm packs to the right cheek daily. She was advised to avoid picki ng and pinching the area. Due to the area not having a loculated collection, there was no surgical in tervention needed for I and D at this time. The patient was advised of this as well. The patient sh ould follow up with her primary care provider in 4 to 7 days for a wound recheck. 2. Asthma. She should continue on her home medications for asthma as previously prescribed. 3. The patient should follow up with her primary care provider in 4 to 7 days for a wound recheck. She should follow up with Dr. Meade in 1 to 2 weeks. The patient should return to the emergency room for any chest pain, shortness of breath, any increase d right facial swelling, fever, chills, or any other concerning symptoms. This is a summarization of her hospitalization. For further details, please see the entire medical r ecord. TIME SPENT: Time spent on this discharge was 45 minutes, greater than half of that time was spent wi th the patient discussing discharge plans and instructions. CONDITION ON DISCHARGE: Stable. DEISY DESHPANDE, BLAKE [id number]/[facility] #: [id number]
== END 2018-04-01 15:10 | disposition home or self-care (01) | DRG 383 ==
LOC: ED 17:53 → MED 22:16 → OBSVTOIN 03-29 16:28
PROVIDERS: ADMIT Internal Medicine; ATTEND Internal Medicine
DX: L03.213 Periorbital cellulitis (principal); L02.01 Cutaneous abscess of face; Z68.41 Body mass index [BMI] 40.0-44.9, adult; J45.909 Unspecified asthma, uncomplicated; R73.03 Prediabetes; E66.9 Obesity, unspecified; F17.210 Nicotine dependence, cigarettes, uncomplicated; B95.62 Methicillin resistant Staphylococcus aureus infection as the cause of diseases classified elsewhere; Z88.0 Allergy status to penicillin; Z82.49 Family history of ischemic heart disease and other diseases of the circulatory system; Z82.5 Family history of asthma and other chronic lower respiratory diseases; Z72.89 Other problems related to lifestyle; Z88.8 Allergy status to other drugs, medicaments and biological substances; Z83.3 Family history of diabetes mellitus
CPT/HCPCS: 36415; 70486; 76536; 80048; 80053; 80202; 81003; 81015; 83036; 83605; 85025; 85610; 86140; 87040; 87070; 87077; 87086; 87186; 87205; 87640; 87641; 94640; 99283; A9270-GY; G0378; J1885; J2270; J2405; J3370

== ENCOUNTER 2018-05-09 12:49 | Emergency (ER) | payer OTHER ==
[2018-05-09 13:37] VITALS: BP 112/82
--- NOTE | 2018-05-09 14:07 | UC ---
Skin Complaint HPI - HPI Summary HPI Summary: 27 year old female presents with 1 day history of intermittent pruritic lesions for forehead, right hand, and left forearm. States she has used OTC benadryl and topical hydrocortisone cream with improvement. She was recently diagnosed with a MRSA infection and is followed by Dr. Meade. Denies fever, chills, swelling of the lips, tongue, or throat, difficulty breathing, or chest pain. She does report changing soaps about 1 week ago otherwise no changes in shampoos , detergents, lotions, cosmetics, diet, or known exposure to environmental irritants. - History of Current Complaint Chief Complaint: UCSkin Time Seen by Provider: 05/09/18 13:41 Stated Complaint: SKIN COMPLAINT FOREHEAD/LEFT ARM/RIGHT HAND Hx Obtained From: Patient Hx Last Menstrual Period: 04/30/18 Pain Intensity: 0 Aggravating Factor(s): Nothing Alleviating Factor(s): OTC Meds, OTC Creams/Salves Associated Signs & Symptoms: Negative: Difficulty Breathing, Fever, Chills, Cough, Wheezing, Chest Pain, Throat Tightening, Tenderness, Joint Swelling - Allergy/Home Medications Allergies/Adverse Reactions: Allergies Allergy/AdvReac Type Severity Reaction Status Date / Time chlorpromazine Allergy See Comment Verified 05/09/18 13:37 [From Thorazine] piperacillin [From Zosyn] Allergy Itching Verified 05/09/18 13:37 tazobactam [From Zosyn] Allergy Itching Verified 05/09/18 13:37 animals Allergy Eyes Uncoded 05/09/18 13:37 Itchy/Swollen/Red/Watery Home Medications: Home Medications ARIPiprazole TAB* [Abilify 2 MG TAB*] 2 mg PO DAILY 05/09/18 [History Confirmed 05/09/18] Albuterol Sulfate [Ventolin Hfa] 18 gm IH BID 05/09/18 [History Confirmed ] Review of Systems All Other Systems Reviewed And Are Negative: Yes Constitutional: Negative: Fever, Chills Respiratory: Negative: Shortness Of Breath Cardiovascular: Negative: Palpitations, Chest Pain Gastrointestinal: Negative: Abdominal Pain, Vomiting, Nausea Is Patient Immunocompromised?: No PMH/Surg Hx/FS Hx/Imm Hx Previously Healthy: Yes Respiratory History: Asthma Psychological History: Bipolar Disorder - Surgical History Surgical History: Yes Surgery Procedure, Year, and Place: breast reduction in Oct-2015 - Family History Known Family History: Positive: Cardiac Disease, Diabetes, Other - asthma - Social History Occupation: Employed Full-time Lives: With Family Alcohol Use: Daily Alcohol Amount: 1 beer a night Substance Use Type: Marijuana, Other Substance Use Comment - Amount & Last Used: 4 cups coffee per day Smoking Status (MU): Light Every Day Tobacco Smoker Type: Cigarettes Amount Used/How Often: 5 cig per day Have You Smoked in the Last Year: Yes Household Exposure Type: Cigarettes - Immunization History Most Recent Influenza Vaccination: has not had Most Recent Pneumonia Vaccination: never Physical Exam Triage Information Reviewed: Yes Appearance: No Pain Distress, Well-Nourished Vital Signs: Initial Vital Signs Temp 98.3 F 05/09/18 13:33 Pulse 78 05/09/18 13:33 Resp 16 05/09/18 13:33 BP 112/82 05/09/18 13:33 Pulse Ox 100 05/09/18 13:33 Eyes: Positive: Conjunctiva Clear. Negative: Discharge ENT: Positive: Normal ENT inspection, Other - airway intact Neck: Positive: Supple, Nontender Respiratory: Positive: Lungs clear, Normal breath sounds, No respiratory distress Cardiovascular: Positive: RRR, No Murmur Neurological: Positive: Alert Skin: Positive: Significant Lesion(s) - Single raise, red, pruritic maculopapular lesion to dorsal right hand. No tenderness, increased warmth, or drainage noted. Course/Dx - Course Course Of Treatment: 27 year old female presents with 1 day history of intermittent pruritic lesions to forehead, right hand, and left forearm. States she has used OTC benadryl and topical hydrocortisone cream with improvement. She was recently diagnosed with a MRSA infection and is followed by Dr. Meade. Exam was unremarkable except for a single, pruritic lesion to her dorsal right hand. Afebrile. No evidence of infectious process. Patient is to contact Dr. Meade to notify him of the symptoms since he has been following her for treatment of MRSA infection. She is to follow up with PCP if symptoms persist despite symptomatic treatment. Warning symptoms reviewed. Verbalizes understanding and agrees with POC. - Diagnoses Provider Diagnoses: pruritic lesions Discharge - Sign-Out/Discharge Documenting (check all that apply): Patient Departure All imaging exams completed and their final reports reviewed: No Studies - Discharge Plan Condition: Stable Disposition: HOME Patient Education Materials: Itchy Skin (ED) Referrals: Kaylah Navas [Primary Care Provider] - 7 Days (If symptoms persists.) Additional Instructions: I do not see any evidence of a skin infection. Go back to your previous soap in case the itching is related to the change in soap. Continue using over the counter diphenhydramine (Benadryl) according to directions as needed for itching. Contact Dr. Meade to let him know about your symptoms. Follow up with you primary care provider in 7 days if symptoms persist. Seek immediate medical attention in the emergency room if you develop fever greater than 100.5 F, have swelling of the lips, tongue, or throat, have difficulty breathing, or any worsening of symptoms. - Billing Disposition and Condition Condition: STABLE Disposition: Home - Attestation Statements Provider Attestation: I was available for consult. This patient was seen by the EMI. The patient was not presented to, seen by, or examined by me. -Rob
== END 2018-05-09 14:13 | disposition home or self-care (01) ==
LOC: UCCORT 12:49
DX: L29.9 Pruritus, unspecified (principal); Z88.0 Allergy status to penicillin; Z88.8 Allergy status to other drugs, medicaments and biological substances; F31.9 Bipolar disorder, unspecified; J45.909 Unspecified asthma, uncomplicated; F17.210 Nicotine dependence, cigarettes, uncomplicated
CPT/HCPCS: 99211; G0463

== ENCOUNTER 2018-10-30 09:33 | Emergency (ER) | payer OTHER ==
[2018-10-30 10:05] VITALS: BP 116/71
--- NOTE | 2018-10-30 10:52 | UC ---
Upper Extremity HPI - HPI Summary HPI Summary: Patient is a 27 year old female, who present today to the urgent care with right elbow forearm for past 2 days. She reports that leaned up against what she thought was a wall and fell through the tarp and landed on some brick on her right upper forearm. She has superficial abrasions on the right forearm and swelling. She denies any other symptoms. No prior injuries She denies any pain in the shoulder or wrist He Last tetanus shot was in 2017. - History of Current Complaint Chief Complaint: UCUpperExtremity Stated Complaint: RIGHT ARM INJURY Time Seen by Provider: 10/30/18 10:34 Hx Obtained From: Patient Hx Last Menstrual Period: 10/27/18 ?: No Pain Intensity: 7 - Allergies/Home Medications Allergies/Adverse Reactions: Allergies Allergy/AdvReac Type Severity Reaction Status Date / Time chlorpromazine Allergy See Comment Verified 10/30/18 10:05 [From Thorazine] nickel Allergy Rash Verified 10/30/18 10:05 piperacillin [From Zosyn] Allergy Itching Verified 10/30/18 10:05 tazobactam [From Zosyn] Allergy Itching Verified 10/30/18 10:05 animals Allergy Eyes Uncoded 10/30/18 10:05 Itchy/Swollen/Red/Watery Home Medications: Home Medications Budesonide/Formote 160/4.5(NF) [Symbicort 160/4.5 (NF)] 2 puff INH BID 10/30/18 [History Confirmed 10/30/18] hydrOXYzine HCL TAB* [Atarax TAB 50 MG *] 50 mg PO BEDTIME PRN 10/30/18 [ History Confirmed 10/30/18] PMH/Surg Hx/FS Hx/Imm Hx - Additional Past Medical History Additional PMH: Past medical history: Asthma Past surgical history: Breast reduction surgery in 2016 Social history: 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 Family history: Heart disease, asthma Previously Healthy: Yes - Surgical History Surgical History: Yes Surgery Procedure, Year, and Place: breast reduction in October-2015 - Family History Known Family History: Positive: Cardiac Disease, Diabetes, Other - asthma - Social History Alcohol Use: Occasionally Alcohol Amount: 1 beer a night Substance Use Type: Marijuana, Other Substance Use Comment - Amount & Last Used: 4 cups coffee per day Smoking Status (MU): Light Every Day Tobacco Smoker Type: Cigarettes Amount Used/How Often: 5 cig per day Have You Smoked in the Last Year: Yes Household Exposure Type: Cigarettes - Immunization History Most Recent Influenza Vaccination: has not had Most Recent Pneumonia Vaccination: never Review of Systems All Other Systems Reviewed And Are Negative: Yes Constitutional: Positive: Negative Skin: Positive: Negative Eyes: Positive: Negative ENT: Positive: Negative Respiratory: Positive: Negative Cardiovascular: Positive: Negative Gastrointestinal: Positive: Negative Genitourinary: Positive: Negative Motor: Positive: Negative Neurovascular: Positive: Negative Musculoskeletal: Positive: Arthralgia - Right elbow and right forearm, Decreased ROM - Right elbow, painful range of motion, Myalgia - Right forearm Neurological: Positive: Negative Psychological: Positive: Negative Is Patient Immunocompromised?: No Physical Exam - Summary Physical Exam Summary: Physical Exam: Const: Appears well. No signs of apparent distress present. Alert and oriented x 3. Musculo: Walks with a normal gait. Head/Face: Atraumatic, normocephalic on inspection. Eyes: EOMI and PERRLA in both eyes. Conjunctivae clear. No discharge noted ENT: Hearing nicole Respiratory: Respirations are unlabored. CVS: Regular rate and Rhythm, S1S2 normal , no murmurs identified. Extremities: Peripheral circulation is grossly normal. Pulses 2+ Abdomen : Soft Skin: No lesions or rash located on the upper extremities or on the lower extremities. Neuro: Cranial nerves II to XII intact, motor and sensory intact. DTR Intact bilaterally. Mood is normal. Affect is normal. Right elbow: Swelling is noted on the proximal forearm along with abrasions without any drainage. Painful and limited range of motion of the right elbow. Distal biceps tendon appears intact. Right shoulder: Pain-free range of motion. Upon abduction she notices pain in the right forearm. Right wrist: Full pain-free range of motion Triage Information Reviewed: Yes Vital Signs: Initial Vital Signs Temp 97.2 F 10/30/18 09:58 Pulse 58 10/30/18 09:58 Resp 16 10/30/18 09:58 BP 116/71 10/30/18 09:58 Pulse Ox 100 10/30/18 09:58 Vital Signs Reviewed: Yes Diagnostics - Radiology No standard instances Radiology Interpretation Completed By: Radiologist - X-ray of the right elbow and right forearm: There is no radiographically apparent fracture or dislocation involving the right elbow or forearm. Upper Extremity Course/Dx - Course Course Of Treatment: During the visit today, we obtained X-ray of the right elbow and right forearm: There is no radiographically apparent fracture or dislocation involving the right elbow or forearm. . We discussed the findings- consistent with right elbow contusion and abrasion. She was given 1 shot of Toradol 30 mg for pain relief. She was put in a sling for comfort and her wounds were dressed. I have prescribed Bactrim to the pharmacy for prophylaxis of and skin infection. She will follow up with orthopedics Patient expressed understanding . - Differential Dx/Diagnosis Provider Diagnosis: Contusion of right elbow and forearm, Abrasion forearm Discharge - Sign-Out/Discharge Documenting (check all that apply): Patient Departure All imaging exams completed and their final reports reviewed: Yes - Discharge Plan Condition: Stable Disposition: HOME Prescriptions: Sulfamethox/Trimethoprim DS* [Bactrim DS 800/160 TAB*] 1 tab PO BID 5 Days #10 tab Patient Education Materials: Contusion in Adults (ED), Abrasion (ED) Referrals: Kaylah Navas [Primary Care Provider] - Kaitlyn Lawson MD [Medical Doctor] - 1 Week Additional Instructions: Please start taking the medication as prescribed to the pharmacy - antibiotics for a skin infection prophylaxis Take ibuprofen as needed for pain control and swelling Continue same for now for comfort but can start gentle range of motion of elbow. Monitor for wound infection. Follow up with orthopedics within a week. Return to Urgent care / ER if symptoms get worse. - Billing Disposition and Condition Condition: STABLE Disposition: Home
[2018-10-30] MEDS ORDERED: Ketorolac INJ* 30 MG/ML 1 ML VIAL IM ONE (11:28)
== END 2018-10-30 11:58 | disposition home or self-care (01) ==
LOC: UCCORT 09:33
DX: S50.811A Abrasion of right forearm, initial encounter (principal); W19.XXXA Unspecified fall, initial encounter; Y93.89 Activity, other specified; Y92.9 Unspecified place or not applicable; Z88.0 Allergy status to penicillin; J45.909 Unspecified asthma, uncomplicated; F17.210 Nicotine dependence, cigarettes, uncomplicated
CPT/HCPCS: 96372; 99213; G0463; J1885

== ENCOUNTER 2019-01-21 20:38 | Emergency (ER) | payer OTHER ==
[2019-01-21 20:44] VITALS: BP 119/75
[2019-01-21] MEDS ORDERED: Albuterol/Ipratropium NEB.SOL* Albuterol 2.5 MG/Ipratropium 0.5 MG 3 ML INH ONE (20:46)
[2019-01-21] MEDS ORDERED: Dexamethasone TAB* 4 MG PO ONE (20:46)
--- NOTE | 2019-01-21 20:47 | UC ---
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 She tells me that she has a history of asthma and is currently dog sitting for her friend. She thinks the dog is making her asthma worse. She had an albuterol inhaler, but has run out of this. She also has some itchy eyes and ears that began about an hour ago. Denies fever, chills, chest pain, abdominal pain, n/v, facial or throat swelling. - History of Current Complaint Chief Complaint: UCGeneralIllness Stated Complaint: SOB Time Seen by Provider: 01/21/19 20:46 Hx Obtained From: Patient Hx Last Menstrual Period: 01/19/19 Onset/Duration: Sudden Onset Severity Currently: None Pain Intensity: 0 - Allergies/Home Medications Allergies/Adverse Reactions: Allergies Allergy/AdvReac Type Severity Reaction Status Date / Time chlorpromazine Allergy See Comment Verified 01/21/19 20:40 [From Thorazine] nickel Allergy Rash Verified 01/21/19 20:40 piperacillin [From Zosyn] Allergy Itching Verified 01/21/19 20:40 tazobactam [From Zosyn] Allergy Itching Verified 01/21/19 20:40 animals Allergy Eyes Uncoded 01/21/19 20:40 Itchy/Swollen/Red/Watery Home Medications: Home Medications Albuterol HFA INHALER* [Ventolin HFA Inhaler*] 2 puff INH Q4H PRN 01/21/19 [ History Confirmed 01/21/19] PMH/Surg Hx/FS Hx/Imm Hx Respiratory History: Asthma - Surgical History Surgical History: Yes Surgery Procedure, Year, and Place: breast reduction in October-2015 - Family History Known Family History: Positive: Cardiac Disease, Diabetes, Other - asthma - Social History Lives: With Family Alcohol Use: Occasionally Alcohol Amount: weekends Substance Use Type: Marijuana, Other Substance Use Comment - Amount & Last Used: CBD vape Smoking Status (MU): Former Smoker Type: Cigarettes Amount Used/How Often: 5 cig per day Have You Smoked in the Last Year: Yes When Did the Patient Quit Smoking/Using Tobacco: 10 days ago Household Exposure Type: Cigarettes - Immunization History Most Recent Influenza Vaccination: has not had Most Recent Pneumonia Vaccination: never Review of Systems All Other Systems Reviewed And Are Negative: Yes Constitutional: Positive: Negative Skin: Positive: Negative Eyes: Positive: Negative ENT: Positive: Negative Respiratory: Positive: Shortness Of Breath, Cough Cardiovascular: Positive: Negative Gastrointestinal: Positive: Negative Neurovascular: Positive: Negative Neurological: Positive: Negative Psychological: Positive: Negative Physical Exam - Summary Physical Exam Summary: GENERAL: NAD. WDWN. No pain distress. SKIN: No rashes, sores, lesions, or open wounds. HEENT: Head: AT/NC Eyes: Conjunctiva clear without inflammation or discharge. Ears: Hearing grossly normal. TMs intact, no bulging, erythema, or edema. Nose: Nasal mucosa pink and moist. NTTP maxillary and frontal sinus. Throat: Posterior oropharynx without exudates, erythema, or tonsillar enlargement. Uvula midline. NECK: Supple. Nontender. No lymphadenopathy. CHEST: Moderate wheezing throughout. No r/r. No accessory muscle use. Breathing comfortably and in no distress. CV: RRR. Without m/r/g. Pulses intact. Cap refill <2seconds NEURO: Alert. PSYCH: Age appropriate behavior. Triage Information Reviewed: Yes Vital Signs: Initial Vital Signs Temp 98.3 F 01/21/19 20:42 Pulse 99 01/21/19 20:42 Resp 20 01/21/19 20:42 BP 119/75 01/21/19 20:42 Pulse Ox 100 01/21/19 20:42 Vital Signs Reviewed: Yes Respiratory Course/Dx - Course Course Of Treatment: In the clinic pt was given a duoneb treatment and 8mg dexamethasone for her asthma exacerbation. She had mild relief, but still had some significant wheezing throughout. SOB was improved. CXR: wet read negative for pna. She was given a nebulizer treatment with albuterol only and had continued improvement of her wheezing and breathing. She was dispensed an albuterol inhaler in the clinic and will rx for prednisone to start tomorrow. Advised to take a daily benadryl as well if she continues to care for the dog, which is likely exacerbating her asthma. - Differential Dx/Diagnosis Provider Diagnosis: Asthma exacerbation Discharge - Sign-Out/Discharge Documenting (check all that apply): Patient Departure All imaging exams completed and their final reports reviewed: No Studies - Discharge Plan Condition: Stable Disposition: HOME Prescriptions: predniSONE TAB* [Deltasone TAB*] 50 mg PO DAILY #5 tab Patient Education Materials: Asthma (ED) Referrals: Kaylah Navas [Primary Care Provider] - Additional Instructions: If you develop a fever, shortness of breath, chest pain, new or worsening symptoms - please call your PCP or go to the ED immediately. - Billing Disposition and Condition Condition: STABLE Disposition: Home
[2019-01-21] MEDS ORDERED: Eye Irrigation Solution 30 ML BOTTLE BOTH EYES ONE (21:08)
[2019-01-21] MEDS ORDERED: Albuterol 2.5 MG/3 ML NEB.SOL* (0.083%) INH ONE (21:09)
[2019-01-21] MEDS ORDERED: Albuterol HFA INHALER* 8 gm MDI INH ONE (21:27)
== END 2019-01-21 21:38 | disposition home or self-care (01) ==
LOC: UCCORT 20:38
DX: J45.901 Unspecified asthma with (acute) exacerbation (principal); Z87.891 Personal history of nicotine dependence
CPT/HCPCS: 71046; 99213; A9270-GY; G0463; J8540

== ENCOUNTER 2019-07-03 07:14 | Emergency (ER) | payer OTHER ==
[2019-07-03 07:33] VITALS: BP 105/72
[2019-07-03] MEDS ORDERED: Ketorolac INJ* 30 MG/ML 1 ML VIAL IM ONE (07:54)
--- NOTE | 2019-07-03 08:07 | UC ---
Back Pain HPI - HPI Summary HPI Summary: 28 yo female with the onset of Right LBP 4-5 days ago. Initially had pain radiating down right leg to foot No bowel or bladder dysfunction She states her most comfortable position is leaning forward worse when back extended went to ER over the weekend and got valium and oxycodone oxycodone makes her vomit no UTI symptoms no abd pain no fever/chills - History of Current Complaint Chief Complaint: UCBackPain Stated Complaint: LOW BACK PAIN Time Seen by Provider: 07/03/19 07:43 Hx Last Menstrual Period: 06/13/19 Onset/Duration: Gradual Onset, Lasting Days Timing: Constant Severity Initially: Moderate Severity Currently: Moderate Pain Intensity: 7 Pain Scale Used: 0-10 Numeric Back Pain: Is Discrete @ - see image, Radiates To - right leg (day one only) Character: Aching, Throbbing, Spasmodic Aggravating Factor(s): Movement, Lifting Alleviating Factor(s): Rest Associated Signs And Symptoms: Negative: Swelling, Redness, Bruising, Fever, Weakness, Numbness, Tingling, Abdominal Pain, Flank Pain, Bladder Incontinence, Bowel Incontinence, Weight Loss, Pain with Weight Bearing Full Body (No Head): 1 - pain here - Allergies/Home Medications Allergies/Adverse Reactions: Allergies Allergy/AdvReac Type Severity Reaction Status Date / Time chlorpromazine Allergy See Comment Verified 01/21/19 20:40 [From Thorazine] nickel Allergy Rash Verified 01/21/19 20:40 piperacillin [From Zosyn] Allergy Itching Verified 01/21/19 20:40 tazobactam [From Zosyn] Allergy Itching Verified 01/21/19 20:40 animals Allergy Eyes Uncoded 01/21/19 20:40 Itchy/Swollen/Red/Watery Home Medications: Home Medications Cetirizine* [ZyrTEC 10 MG TAB*] 10 mg PO DAILY 07/03/19 [History Confirmed 07/03] Tiotropium CAPSULE (NF) [Spiriva CAPSULE (NF)] 1 cap.inh INH DAILY 07/03/19 [ History Confirmed 07/03/19] diazePAM [Diazepam] 5 mg PO TID PRN 07/03/19 [History Confirmed 07/03/19] PMH/Surg Hx/FS Hx/Imm Hx Endocrine History: Diabetes - type II on no meds Respiratory History: Asthma - Surgical History Surgical History: Yes Surgery Procedure, Year, and Place: breast reduction in Oct-2015 - Family History Known Family History: Positive: Cardiac Disease, Diabetes, Respiratory Disease, Other - asthma - Social History Alcohol Use: Occasionally Alcohol Amount: weekends Substance Use Type: Marijuana, Other Substance Use Comment - Amount & Last Used: CBD vape Smoking Status (MU): Former Smoker Type: Cigarettes Amount Used/How Often: 5 cig per day Have You Smoked in the Last Year: Yes When Did the Patient Quit Smoking/Using Tobacco: 10 days ago Household Exposure Type: Cigarettes - Immunization History Most Recent Influenza Vaccination: has not had Most Recent Pneumonia Vaccination: never Review of Systems All Other Systems Reviewed And Are Negative: Yes Constitutional: Positive: Negative Skin: Positive: Negative Eyes: Positive: Negative ENT: Positive: Negative Respiratory: Positive: Negative Cardiovascular: Positive: Negative Gastrointestinal: Positive: Negative Genitourinary: Positive: Negative Motor: Positive: Negative Neurovascular: Positive: Negative Musculoskeletal: Positive: Myalgia - right lower back Neurological: Positive: Negative Psychological: Positive: Negative Physical Exam Triage Information Reviewed: Yes Appearance: Well-Appearing, No Pain Distress, Well-Nourished Vital Signs: Initial Vital Signs Temp 98.0 F 07/03/19 07:26 Pulse 71 07/03/19 07:26 Resp 16 07/03/19 07:26 BP 105/72 07/03/19 07:26 Pulse Ox 100 07/03/19 07:26 Vital Signs Reviewed: Yes Eyes: Positive: Conjunctiva Clear ENT: Positive: Hearing grossly normal, Uvula midline. Negative: Nasal congestion, Nasal drainage, Trismus, Muffled voice Neck: Positive: Supple, Nontender, No Lymphadenopathy Respiratory: Positive: Lungs clear, Normal breath sounds, No respiratory distress, No accessory muscle use Cardiovascular: Positive: RRR, No Murmur Musculoskeletal: Positive: ROM Intact, No Edema Neurological: Positive: Alert, Muscle Tone Normal Psychological: Positive: Normal Response To Family, Age Appropriate Behavior Skin Exam: Normal - Additional Comments Right hip exam_ no pain with internal/external rotation back pain with extension and twisting (-) SLR distal n/v intact Diagnostics - Laboratory Lab Results: UA (-) uHCG (-) Re-Evaluation - Re-Evaluation First Eval Re-Evaluation Time: 08:40 Change: Improved Comment: decreased pain and slight increased ROM Back Pain Course/Dx - Differential Dx/Diagnosis Provider Diagnosis: Acute lumbar myofascial strain Discharge ED - Sign-Out/Discharge Documenting (check all that apply): Patient Departure All imaging exams completed and their final reports reviewed: No Studies - Discharge Plan Condition: Stable Disposition: HOME Prescriptions: Naproxen [Naproxen 500 mg tab] 500 mg PO BID PRN #20 tablet PRN Reason: Pain Patient Education Materials: Low Back Strain (ED) Forms: *Work Release Referrals: Hanny Hilario PA [Primary Care Provider] - 1 Week Additional Instructions: activity as tolerated PT consult be sure to follow up with your provider - Billing Disposition and Condition Condition: STABLE Disposition: Home
== END 2019-07-03 08:51 | disposition home or self-care (01) ==
LOC: UCCORT 07:14
DX: S39.012A Strain of muscle, fascia and tendon of lower back, initial encounter (principal); E11.9 Type 2 diabetes mellitus without complications; Z88.8 Allergy status to other drugs, medicaments and biological substances; Z88.0 Allergy status to penicillin; Z87.891 Personal history of nicotine dependence; Z91.09 Other allergy status, other than to drugs and biological substances; X58.XXXA Exposure to other specified factors, initial encounter; Y92.9 Unspecified place or not applicable
CPT/HCPCS: 81003; 84702; 96372; 99212; G0463; J1885